=== PATIENT | female | born 1995 | race Caucasian/White ===

== ENCOUNTER 2016-12-22 09:48 | Emergency (ER) | payer BC, OTHER ==
[2016-12-22 11:14] VITALS: BP 122/70
--- NOTE | 2016-12-27 11:14 | UC ---
Respiratory Complaint HPI - HPI Summary HPI Summary: 3-4 days of worsening sore throat - History of Current Complaint Chief Complaint: UCGeneralIllness Stated Complaint: FLU SYMPTOMS Time Seen by Provider: 12/22/16 11:52 Hx Obtained From: Patient Hx Last Menstrual Period: IUD ?: No Onset/Duration: Sudden Onset, Lasting Days - 3-4, Still Present Severity Initially: Moderate Severity Currently: Moderate Pain Intensity: 8 Pain Scale Used: 0-10 Numeric Alleviating Factors: Nothing Associated Signs And Symptoms: Positive: Negative - Allergies/Home Medications Allergies/Adverse Reactions: Allergies Allergy/AdvReac Type Severity Reaction Status Date / Time Amoxicillin Allergy Severe Blisters Verified 12/22/16 11:05 Latex Allergy Intermediate Blisters Verified 12/22/16 11:05 Penicillins Allergy Intermediate Blisters Verified 12/22/16 11:05 yvonne cheese Allergy Hives Uncoded 12/22/16 11:05 tomatoes Allergy Hives Uncoded 12/22/16 11:05 Home Medications: Home Medications Naproxen [Naprosyn EC 375 MG TAB] 1 tab PO Q12HR PRN 12/22/16 [History Confirmed 12/22/16] Pseudoephedrine-Guaifenesin [Mucinex D 60-600 mg] 1 tab PO Q12HR PRN 12/22/16 [ History Confirmed 12/22/16] PMH/Surg Hx/FS Hx/Imm Hx Previously Healthy: No Endocrine History Of: Denies: Diabetes, Thyroid Disease, Hyperthyroidism, Hypothyroidism, Dyslipidemia Cardiovascular History Of: Denies: Cardiac Disorders, Hypertension, Pacemaker/ICD, Myocardial Infarction , Congestive Heart Failure, Atrial Fibrillation, Deep Vein Thrombosis, Bleeding Disorders Respiratory History Of: Reports: Asthma - Childhood Denies: COPD GI/ History Of: Denies: Gastroesophageal Reflux, Ulcer, Gastrointestinal Bleed, Gall Bladder Disease, Kidney Stones, Diverticulitis, Renal Disease, Urosepsis Neurological History Of: Denies: TIA, CVA, Dementia, Seizures, Migraine Psychological History Of: Denies: Anxiety, Depression, Bipolar Disorder, Schizophrenia, Post Traumatic Stress Disorder Cancer History Of: Denies: Lung Cancer, Colorectal Cancer, Breast Cancer, Prostate Cancer, Cervical Cancer Other History Of: Negative For: HIV, Hepatitis B, Hepatitis C, Anticoagulant Therapy - Surgical History Surgical History: None Surgery Procedure, Year, and Place: fractured back - Family History Known Family History: Positive: None, Hypertension - Social History Occupation: Employed Full-time Lives: With Family Alcohol Use: None Substance Use Type: None Smoking Status (MU): Never Smoked Tobacco Household Exposure Type: Cigarettes - Immunization History Most Recent Influenza Vaccination: never Most Recent Tetanus Shot: UTD Vaccination Up to Date: Yes Review of Systems Constitutional: Negative Skin: Negative Eyes: Negative ENT: Negative, Sore Throat Respiratory: Negative Cardiovascular: Negative Gastrointestinal: Negative Genitourinary: Negative Motor: Negative Neurovascular: Negative Musculoskeletal: Negative Neurological: Negative Psychological: Negative All Other Systems Reviewed And Are Negative: Yes Physical Exam Triage Information Reviewed: Yes Appearance: Well-Appearing, No Pain Distress, Well-Nourished Vital Signs: Initial Vital Signs Temp 99.2 F 12/22/16 11:01 Pulse 74 12/22/16 11:01 Resp 18 12/22/16 11:01 BP 122/70 12/22/16 11:01 Pulse Ox 100 12/22/16 11:01 Vital Signs Reviewed: Yes Eye Exam: Normal Eyes: Positive: Conjunctiva Clear ENT Exam: Normal ENT: Positive: Normal ENT inspection, Hearing grossly normal, Pharynx normal, Nasal congestion, Nasal drainage. Negative: Trismus, Muffled/hoarse voice Dental Exam: Normal Neck exam: Normal Neck: Positive: Supple, Nontender, No Lymphadenopathy Respiratory Exam: Normal Respiratory: Positive: Chest non-tender, Lungs clear, Normal breath sounds, No respiratory distress, No accessory muscle use Cardiovascular Exam: Normal Cardiovascular: Positive: RRR, No Murmur, Pulses Normal, Brisk Capillary Refill Musculoskeletal Exam: Normal Musculoskeletal: Positive: Strength Intact, ROM Intact, No Edema Neurological Exam: Normal Neurological: Positive: Alert, Muscle Tone Normal Psychological Exam: Normal Skin Exam: Normal UC Diagnostic Evaluation - Laboratory O2 Sat by Pulse Oximetry: 100 Diagnostic Studies Comment: RST (-), Influenza a/b (-) Respiratory Course/Dx - Course Course Of Treatment: rest, increase fluids, otc pain and symptom relief follow with pcp - Differential Dx/Diagnosis Differential Diagnosis/HQI/PQRI: Asthma, Bronchitis, Influenza, Laryngitis, Lower Resp Infection Provider Diagnoses: URI, Viral syndrome Discharge - Discharge Plan Condition: Stable Disposition: HOME Patient Education Materials: Upper Respiratory Infection (ED), Viral Syndrome ( ED) Referrals: [facility] [place] [facility]FERR[facility] [Outside] - 4 Days No Primary Care Phys,NOPCP [Primary Care Provider] -
== END 2016-12-22 12:30 | disposition home or self-care (01) ==
LOC: UCEAST 09:48
DX: J06.9 Acute upper respiratory infection, unspecified (principal); B34.9 Viral infection, unspecified; Z88.0 Allergy status to penicillin; Z77.22 Contact with and (suspected) exposure to environmental tobacco smoke (acute) (chronic)
CPT/HCPCS: 87502; 87651; 99211; G0463

== ENCOUNTER 2017-03-02 16:40 | Emergency (ER) | payer BC, OTHER ==
[2017-03-02 16:45] VITALS: BP 113/74
--- NOTE | 2017-03-02 17:20 | UC ---
Clemente Bunch Alok, scribed for Wilfredo Broderick MD on 03/02/17 at 1717 . Skin Complaint HPI - HPI Summary HPI Summary: 21F presents to [facility] with a rash with pruritus and erythema on her arms, chest, and shoulders. Pt states that yesterday she noticed the rash which began on her left hand and by this morning spread to her arms, chest, and shoulders. Pt states she was working on old floor tiles yesterday. Pt also notes leg pruritus. Pt also notes a sore throat as well as fatigue yesterday and today. Pt denies SOB. - History of Current Complaint Chief Complaint: UCSkin Time Seen by Provider: 03/02/17 17:04 Stated Complaint: HIVES,CHEST DISCOMFORT Hx Obtained From: Patient Hx Last Menstrual Period: IUD ?: No Onset/Duration: Lasting Days, Still Present Timing: Constant Onset Severity: Moderate Current Severity: Moderate Location: Generalized Character: Pruritus, Redness Aggravating: Nothing Alleviating: Nothing Associated Signs & Symptoms: Positive: Rash - Allergy/Home Medications Allergies/Adverse Reactions: Allergies Allergy/AdvReac Type Severity Reaction Status Date / Time Amoxicillin Allergy Severe Blisters Verified 03/02/17 16:45 Latex Allergy Intermediate Blisters Verified 03/02/17 16:45 Penicillins Allergy Intermediate Blisters Verified 03/02/17 16:45 yvonne cheese Allergy Hives Uncoded 01/23/17 08:52 tomatoes Allergy Hives Uncoded 01/23/17 08:52 Review of Systems Constitutional: Negative Skin: Rash ENT: Sore Throat Respiratory: Negative All Other Systems Reviewed And Are Negative: Yes PMH/Surg Hx/FS Hx/Imm Hx Other History Of: Negative For: HIV, Hepatitis B, Hepatitis C, Anticoagulant Therapy - Surgical History Surgical History: None Surgery Procedure, Year, and Place: fractured back-NO SURGERY - Family History Known Family History: Positive: Hypertension - Social History Occupation: Employed Full-time Alcohol Use: None Substance Use Type: None Smoking Status (MU): Never Smoked Tobacco Household Exposure Type: Cigarettes - Immunization History Most Recent Influenza Vaccination: never Most Recent Tetanus Shot: UTD Vaccination Up to Date: Yes Physical Exam Triage Information Reviewed: Yes Appearance: Well-Appearing, No Pain Distress Vital Signs: Initial Vital Signs Temp 99.6 F 03/02/17 16:44 Pulse 64 03/02/17 16:44 Resp 16 03/02/17 16:44 BP 113/74 03/02/17 16:44 Pulse Ox 97 03/02/17 16:44 Vital Signs Reviewed: Yes Eyes: Positive: Other: - EOMI, BONITA ENT Exam: Normal ENT: Positive: Pharynx normal Neck: Positive: Supple, Nontender Respiratory: Positive: Lungs clear, Normal breath sounds Cardiovascular: Positive: RRR Abdomen Description: Positive: Nontender, Soft Bowel Sounds: Positive: Present Musculoskeletal Exam: Normal Musculoskeletal: Positive: Strength Intact, ROM Intact Neurological Exam: Normal Neurological: Positive: Other: - A&O x3. Sensory/Motor intact Psychological: Positive: Other: - affect/mood appropriate Skin: Positive: Other - Rash 2-3 mm punctate raised erythematous areas multiple of them on wrists, forearms, anterior chest, and upper shoulders. None on abd, waist line, or legs. Course/Dx - Course Course Of Treatment: Pt medications reviewed this visit. PATIENT WAS CLEANING YESTERDAY MORNING AND THIS MAY BE THE CAUSE OF THE RASH; CONTACT DERMATITIS. THERE WAS NO RASH ON THE WAISTLINE OR BETWEEN THE FINGER WEBBING SO, IT DOES NOT APPEAR TO BE SCABIES. LUNGS CTA/OROPHARYNX OPEN. RX PREDNISONE 40MG PO QD. PATIENT WILL F/U WITH PMD OR, IF WORSE,GO TO THE ED. - Diagnoses Provider Diagnoses: RASH Discharge - Discharge Plan Condition: Stable Disposition: HOME Prescriptions: predniSONE TAB* [Deltasone TAB*] 40 mg PO DAILY #10 tab Patient Education Materials: Acute Rash (ED) Referrals: No Primary Care Phys,NOPCP [Primary Care Provider] - [facility] [place] [facility] RE[facility]ERR[facility] [Outside] Additional Instructions: FOLLOW UP WITH YOUR DOCTOR. TAKE THE PREDNISONE DIRECTED. GO TO THE EMERGENCY DEPARTMENT FOR ANY WORSENING OF YOUR CONDITION; FEVER, YOU FEEL ILL, SHORTNESS OF BREATH OR QUESTIONS OR CONCERNS. The documentation as recorded by the Clemente swanson Alok accurately reflects the service I personally performed and the decisions made by me, Wilfredo Broderick MD.
== END 2017-03-02 17:28 | disposition home or self-care (01) ==
LOC: UCEAST 16:40
DX: R21 Rash and other nonspecific skin eruption (principal); J02.9 Acute pharyngitis, unspecified; R53.83 Other fatigue; Z88.0 Allergy status to penicillin; Z88.1 Allergy status to other antibiotic agents; Z91.040 Latex allergy status; Z77.22 Contact with and (suspected) exposure to environmental tobacco smoke (acute) (chronic)
CPT/HCPCS: 99211; G0463

== ENCOUNTER 2017-03-12 15:27 | Emergency (ER) | payer BC, OTHER ==
[2017-03-12] MEDS ORDERED: NS 0.9% 1000 ML* 1,000 ML IV ONE (16:11)
[2017-03-12 16:29] LABS: Hematocrit 40 % (35-47); Hemoglobin 13.3 g/dl (12.0-16.0); Mean Corpuscular HGB Conc 34 g/dl (31-36); Mean Corpuscular Hemoglobin 31 pg (27-31); Mean Corpuscular Volume 92 fL (80-97); Mean Platelet Volume 9 um3 (7.4-10.4); Red Blood Count 4.32 10^6/ul (4.0-5.4); Red Cell Distribution Width 13 % (10.5-15); White Blood Count 12.9 10^3/ul (3.5-10.8)
[2017-03-12] MEDS ORDERED: Morphine INJ* 4 MG/ML 1 ML SYRINGE IV ONE ×2 (16:30→18:55)
[2017-03-12] MEDS ORDERED: Ondansetron INJ* 2 MG/ML VIAL IV ONE (16:30)
[2017-03-12 16:40] LABS: Albumin 4.5 g/dL (3.2-5.2); Calcium 9.4 mg/dL (8.6-10.3); EGFR African American 97.9 (>60); EGFR Non-African American 76.1 (>60); Globulin 2.9 g/dL (2-4); Magnesium 1.9 mg/dL (1.9-2.7); Potassium 3.9 mmol/L (3.5-5.0); Total Bilirubin 0.9 mg/dL (0.2-1.0); Total Protein 7.4 g/dL (6.4-8.9)
[2017-03-12] MEDS ORDERED: NS 0.9% 1000 ML* 1,000 ML IV SCH (16:45)
--- NOTE | 2017-03-12 16:58 | ED ---
Sade Bunch SooYoung, scribed for Alysa Gagnon MD on 03/12/17 at 1616 . Syncope/Near Syncope - HPI Summary HPI Summary: A 21 y/o F presents to ED with mom thorough amb triage. 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 Pt was walking when she had her syncopal episodes. Associated sx include R-sided abd pain onset last night after dinner, nausea, photophobia, decreased PO intake, fever of 101 F, vomiting. Pt reports mid right side abd pain. Denies vaginal discharge, itching, odor, or . She states "I feel like I'm dying." Pt states feels weak and dehydrated. Pt was recently dx with a UTI, pt is taking Cipro. She's been given Cipro by both [facility] and [facility]. (Bottle has 2 tabs missing, filled 03/09) Pt is also taking Prednisone after breaking into hives from touching concrete 1 week ago. She is unsure of the last time she took the Prednisone (bottle has 2 tabs missing, filled 03/03) . She is also taking Citrizine but not consistently. Pt reports has a headache and requests room lights off. Non-smoking, no ETOH, no drugs. Past SHx: shoulder surgery. Patient's medication reviewed this visit. 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, Lasting Days - abd pain last night, Still Present Timing: Constant Activity At Onset: At Rest - walking Associated Head Trauma: No Associated Signs And Symptoms: Pain - abd, Vomiting, Other - pos: nausea, photophobia, decreased PO intake, fever of 101 F - Allergies/Home Medications Allergies/Adverse Reactions: Allergies Allergy/AdvReac Type Severity Reaction Status Date / Time Amoxicillin Allergy Severe Blisters Verified 03/02/17 16:45 Latex Allergy Intermediate Blisters Verified 03/02/17 16:45 Penicillins Allergy Intermediate Blisters Verified 03/02/17 16:45 yvonne cheese Allergy Hives Uncoded 01/23/17 08:52 tomatoes Allergy Hives Uncoded 01/23/17 08:52 PMH/Surg Hx/FS Hx/Imm Hx Previously Healthy: No Endocrine/Hematology History: Denies: Hx Anticoagulant Therapy, Hx Diabetes, Hx Systemic Lupus Erythematosus, Hx Thyroid Disease Cardiovascular History: Denies: Hx Congestive Heart Failure, Hx Deep Vein Thrombosis, Hx Hypertension , Hx Myocardial Infarction, Hx Pacemaker/ICD, Hx Peripheral Vascular Disease Respiratory History: Reports: Hx Asthma - Childhood Denies: Hx Chronic Obstructive Pulmonary Disease (COPD), Hx Lung Cancer GI History: Denies: Hx Gall Bladder Disease, Hx Gastrointestinal Bleed, Hx Ulcer, Hx Urosepsis History: Denies: Hx Dialysis, Hx Kidney Stones, Hx Renal Disease Musculoskeletal History: Reports: Hx Back Problems, Other Musculoskeletal History - RIGHT SHOULDER INJURY Denies: Hx Arthritis, Hx Rheumatoid Arthritis, Hx Osteoporosis Sensory History: Reports: Hx Contacts or Glasses - GLASSES Denies: Hx Cataracts, Hx Glaucoma, Hx Hearing Aid Opthamlomology History: Reports: Hx Contacts or Glasses - GLASSES Denies: Hx Cataracts, Hx Glaucoma Neurological History: Denies: Hx Dementia, Hx Headaches, Hx Migraine, Hx Seizures, Hx Transient Ischemic Attacks (TIA) Psychiatric History: Denies: Hx Anxiety, Hx Depression, Hx Panic Disorder, Hx Schizophrenia, Hx Bipolar Disorder, Hx Substance Abuse - Cancer History Cancer Type, Location and Year: fractured back; "my stomach doesn't digest correctly" Hx Chemotherapy: No - Surgical History Surgery Procedure, Year, and Place: fractured back-NO SURGERY Hx Anesthesia Reactions: No - NO SURGERY - Immunization History Date of Tetanus Vaccine: Unk Date of Influenza Vaccine: None Infectious Disease History: No Infectious Disease History: Denies: Hx Hepatitis, Traveled Outside the [place] in Last 30 Days - Family History Known Family History: Positive: Hypertension - Social History Occupation: Employed Part-time Lives: Alone Alcohol Use: None Hx Substance Use: No Substance Use Type: Reports: None Hx Tobacco Use: No Smoking Status (MU): Never Smoked Tobacco Review of Systems Positive: Fever - 101 F reported - vomited 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 Negative: discharge - neg: vaginal discharge Skin: Negative Positive: Syncope - without trauma Psychological: Normal All Other Systems Reviewed And Are Negative: Yes Physical Exam Triage Information Reviewed: Yes Vital Signs On Initial Exam: Initial Vitals Temp Pulse Resp BP Pulse Ox 97.5 F 70 17 130/85 98 03/12/17 15:32 03/12/17 15:32 03/12/17 15:32 03/12/17 15:32 03/12/17 15:32 Vital Signs Reviewed: Yes Appearance: Positive: Well-Nourished. Negative: No Pain Distress - Pt eyes closed, requesting lights off Skin: Positive: Warm, Skin Color Reflects Adequate Perfusion, Dry Head/Face: Positive: Normal Head/Face Inspection ENT: Positive: TMs normal, Other - lips dry, mm pasty Neck: Positive: Supple, Nontender, No Lymphadenopathy Respiratory/Lung Sounds: Positive: Clear to Auscultation, Breath Sounds Present , Decreased Breath Sounds. Negative: Rhonchi, Wheezes Cardiovascular: Positive: Normal, RRR. Negative: Murmur Abdomen Description: Positive: No Organomegaly, Soft. Negative: Nontender - right mid abdTTP, No masses, no distension + BS No guarding no suprapubic pain Bowel Sounds: Positive: Present Musculoskeletal: Positive: Normal, Strength/ROM Intact Neurological: Positive: Normal, Sensory/Motor Intact, Alert, Oriented to Person Place, Time - Melyssa Coma Scale Coma Scale Total: 15 Diagnostics - Vital Signs Vital Signs Temp Pulse Resp BP Pulse Ox 03/12/17 16:01 63 120/83 100 03/12/17 15:57 97.7 F 64 16 120/83 99 03/12/17 15:32 97.5 F 70 17 130/85 98 - Laboratory Lab Results: Lab Results 03/12/17 03/12/17 Range/Units 15:55 15:55 WBC 12.9 H (3.5-10.8) 10^3/ul RBC 4.32 (4.0-5.4) 10^6/ul Hgb 13.3 (12.0-16.0) g/dl Hct 40 (35-47) % MCV 92 (80-97) fL MCH 31 (27-31) pg MCHC 34 (31-36) g/dl RDW 13 (10.5-15) % Plt Count 278 (150-450) 10^3/ul MPV 9 (7.4-10.4) um3 Neut % (Auto) 79.5 (38-83) % Lymph % (Auto) 15.1 L (25-47) % Duval % (Auto) 5.2 (1-9) % Eos % (Auto) 0 (0-6) % Baso % (Auto) 0.2 (0-2) % Absolute Neuts (auto) 10.3 H (1.5-7.7) 10^3/ul Absolute Lymphs (auto) 2.0 (1.0-4.8) 10^3/ul Absolute Monos (auto) 0.7 (0-0.8) 10^3/ul Absolute Eos (auto) 0 (0-0.6) 10^3/ul Absolute Basos (auto) 0 (0-0.2) 10^3/ul Absolute Nucleated RBC 0.01 10^3/ul Nucleated RBC % 0 Sodium 136 (133-145) mmol/L Potassium 3.9 (3.5-5.0) mmol/L Chloride 105 (101-111) mmol/L Carbon Dioxide 24 (22-32) mmol/L Anion Gap 7 (2-11) mmol/L BUN 13 (6-24) mg/dL Creatinine 0.93 (0.51-0.95) mg/dL Est GFR ( Amer) 97.9 (>60) Est GFR (Non-Af Amer) 76.1 (>60) BUN/Creatinine Ratio 14.0 (8-20) Glucose 96 (70-100) mg/dL Calcium 9.4 (8.6-10.3) mg/dL Magnesium 1.9 (1.9-2.7) mg/dL Total Bilirubin 0.90 (0.2-1.0) mg/dL AST 13 (13-39) U/L ALT 9 (7-52) U/L Alkaline Phosphatase 49 (34-104) U/L Total Protein 7.4 (6.4-8.9) g/dL Albumin 4.5 (3.2-5.2) g/dL Globulin 2.9 (2-4) g/dL Albumin/Globulin Ratio 1.6 (1-3) Beta HCG, Quant 0.61 mIU/mL Result Diagrams: 03/12/17 15:55 03/12/17 15:55 Lab Statement: Any lab studies that have been ordered have been reviewed, and results considered in the medical decision making process. - CT A/P CT CT Interpretation: Positive (See Comments) - IMPRESSION: 1. SLIGHTLY LIMITED STUDY, NO EVIDENCE FOR APPENDICITIS. RECOMMEND CLINICAL FOLLOW-UP. 2. MODERATE DISTENTION OF THE PROXIMAL TRANSVERSE DUODENUM SUGGESTING THE POSSIBILITY OF SUPERIOR MESENTERIC ARTERY SYNDROME. CT Interpretation Completed By: Radiologist - EKG 1 EKG Rhythm: Sinus Rhythm - 63 bpm EKG Interpretation: No acute changes. Read at 1612. Re-Evaluation - Re-Evaluation 1 Re-Evaluation Time: 17:19 Change: Improved Comment: Checking on pt's contrast intake. Pt has had 1 bottle. [place] has improved. Pt scrolling on her cell phone. nausea improved, not resolved. labs reviewed. awaiting Ct and urine. Pt aware 2 Re-Evaluation Time: 20:06 Comment: - Discussing CT results with pt and mother. Recommendation to F/U with GI in [place] - call tomorrow for an appointment. - Still awaiting urine. - will give Rx zofran. pt requesting work note for tomorrow 3 Re-Evaluation Time: 20:37 Comment: - Pt ambulated without difficulty, lightheadedness. - Discussing UA results with pt and mother. recommend continue with cipro. culture pending Course/Dx Assessment/Plan: Pt presents with right sided abd pain, nausea, vomiting- pt states is on cipro for UTI but hx is inconsistent with pills remaining in bottles. Pt report 2 syncopal episodes while standing - no injury. Pt reports feeling dehydrated and weak. Will give IVF, antiemetic, analgesia. Check labs. CT abd/pelvis. EKG reviewed - Diagnoses Provider Diagnoses: UTI (urinary tract infection), Vomiting - Physician Notifications Discussed Care of Patient With: Scot Harp - surgery Time Discussed With Above Provider: 19:59 - No acute surgical interventioin required - normal laboratory results - okay to f/u with GI Instructed by Provider To: Other - discussed CT results, recommends f/u with GI Discharge - Discharge Plan Condition: Stable Disposition: HOME Prescriptions: Ondansetron ODT TAB* [Zofran 4 MG Odt TAB*] 4 mg PO Q6H PRN #10 tab.odt PRN Reason: Nausea Patient Education Materials: Ondansetron (By mouth) Forms: *Work Release Referrals: [facility] [Outside] No Primary Care Phys,NOPCP [Primary Care Provider] - Additional Instructions: As discussed, follow up with your GI doctor in [place] - call tomorrow to schedule and appointment Stay well hydrated - frequent sips of non-alcoholic, non-caffinated beverages Alternate ibuprofen (advil, motrin) and tylenol every 3 hours for pain Take with food. do NOT take for more than 4-5 days It is recommended you continue taking cipro - medications previously prescribed for urinary tract infection Okay to take medication as prescribed for nausea . The documentation as recorded by the Sade swanson SooYoung accurately reflects the service I personally performed and the decisions made by me, Alysa Gagnon MD.
[2017-03-12] MEDS ORDERED: Metoclopramide IV* 5 MG/ML 2 ML VIAL IV ONE (18:55)
[2017-03-12] MEDS ORDERED: Iohexol 300* (CONTRAST) 10 ML SDV IV ONE (19:04)
[2017-03-12 19:16] VITALS: BP 118/69
--- NOTE | 2017-03-12 19:49 | RAD ---
INDICATION: Right mid abdominal pain and fever. COMPARISON: Comparison is made with a prior CT of the abdomen and pelvis from March 20, 2016. TECHNIQUE: A CT scan of the abdomen and pelvis was performed with intravenous and oral contrast following intravenous injection of 68 ml of Omnipaque 300 nonionic contrast. Contiguous axial sections were obtained from the lung bases through the symphysis pubis. Images were reconstructed in the coronal and sagittal planes. FINDINGS: The lung bases are clear. No pleural effusion is present. The liver and spleen are within normal limits in size without significant focal abnormality. No calcified gallstones are seen. The pancreas appears to be within normal limits in size. The kidneys and adrenal glands are normal in size. No hydronephrosis is seen. No significant focal renal abnormality is seen. The aorta is normal in caliber and demonstrates homogeneous contrast opacification. No significant enlarged retroperitoneal lymph nodes are seen. The stomach is nondistended. There is moderate distention of the proximal transverse duodenum up to the level of the superior mesenteric artery suggesting the possibility of superior mesenteric artery syndrome in this thin patient. The superior mesenteric artery makes a shallow angle with the abdominal aorta. The small bowel and colon are otherwise nondistended. The appendix is partially visualized and the portions visualized appear to be within normal limits. No inflammatory changes are seen in the right lower quadrant. There is no evidence for diverticulitis or colitis. The uterus is normal in size and anteverted. There is an IUD present. There is a trace amount of free intraperitoneal fluid in the cul-de-sac. No free intraperitoneal air is seen. No significant focal osseous abnormality is seen. IMPRESSION: 1. SLIGHTLY LIMITED STUDY, NO EVIDENCE FOR APPENDICITIS. RECOMMEND CLINICAL FOLLOW-UP. 2. MODERATE DISTENTION OF THE PROXIMAL TRANSVERSE DUODENUM SUGGESTING THE POSSIBILITY OF SUPERIOR MESENTERIC ARTERY SYNDROME.
[2017-03-12] MEDS ORDERED: Ondansetron ODT TAB* 4 MG PO PRN (20:25)
[2017-03-12 20:35] LABS: Urine Bacteria 1+ (Absent); Urine Bilirubin Negative (Negative); Urine Glucose Negative (Negative); Urine Nitrite Negative (Negative)
== END 2017-03-12 20:56 | disposition home or self-care (01) ==
LOC: ED 15:27
DX: N39.0 Urinary tract infection, site not specified (principal); R55 Syncope and collapse; R11.2 Nausea with vomiting, unspecified; R10.9 Unspecified abdominal pain; R50.9 Fever, unspecified; Z32.02 Encounter for pregnancy test, result negative; J45.909 Unspecified asthma, uncomplicated; Z88.0 Allergy status to penicillin; Z88.1 Allergy status to other antibiotic agents; Z91.040 Latex allergy status
CPT/HCPCS: 36415; 74177; 80053; 81003; 81015; 83690; 83735; 84702; 85025; 87086; 93005; 96361; 96374; 96375; 96376; 99283; A9270-GY; J2270; J2405; Q9967

== ENCOUNTER 2017-08-08 08:00 | Emergency (ER) | payer BC, OTHER ==
[2017-08-08 08:10] VITALS: BP 105/64
[2017-08-08] MEDS ORDERED: Albuterol/Ipratropium NEB.SOL* Albuterol 2.5 MG/Ipratropium 0.5 MG 3 ML INH ONE (08:59)
--- NOTE | 2017-08-08 09:02 | UC ---
Respiratory Complaint HPI - HPI Summary HPI Summary: 22 yo female c/o progressive worse cough, nasal congestion / sinus stuffiness x 2 weeks. Last few days has been c/o distal lat R insp chest discomfort with deep breath or cough. No sob perse. No palpitations. No recent travel. Nonsmoker. No fever / chills. Pt is concerned d/t two family members in household have been dx'd pneumonia. Nonsmoker. No rash. No GI sx. - History of Current Complaint Chief Complaint: UCRespiratory Stated Complaint: CONGESTION Time Seen by Provider: 08/08/17 08:50 Hx Obtained From: Patient Hx Last Menstrual Period: iud ?: No - Allergies/Home Medications Allergies/Adverse Reactions: Allergies Allergy/AdvReac Type Severity Reaction Status Date / Time Amoxicillin Allergy Severe Blisters Verified 08/08/17 08:10 Latex Allergy Intermediate Blisters Verified 08/08/17 08:10 Penicillins Allergy Intermediate Blisters Verified 08/08/17 08:10 [place] Extract Allergy Hives Verified 08/08/17 08:10 Fish-derived Products Allergy Hives Verified 08/08/17 08:10 Onion Allergy Hives Verified 08/08/17 08:10 yvonne cheese Allergy Hives Uncoded 08/08/17 08:10 tomatoes Allergy Hives Uncoded 08/08/17 08:10 Home Medications: Home Medications Ibuprofen [Advil] 600 mg PO 08/08/17 [History] Frvszcgeihagg-Khqmnsnmeqv-Ek [Theraflu Cold & Cough] 1 tom PO 08/08/17 [History] Pseudoephedrine-Guaifenesin [Mucinex D 60-600 mg] 1 tab PO 08/08/17 [History] PMH/Surg Hx/FS Hx/Imm Hx Previously Healthy: Yes Other History Of: Negative For: HIV, Hepatitis B, Hepatitis C, Anticoagulant Therapy - Surgical History Surgical History: Yes Surgery Procedure, Year, and Place: FX BACK-NO SURGERY;. RIGHT SHOULDER REPAIR 01/2017;. MIRENA IUD 3T - Family History Known Family History: Positive: None, Hypertension - Social History Alcohol Use: None Substance Use Type: None Smoking Status (MU): Never Smoked Tobacco Household Exposure Type: Cigarettes - Immunization History Most Recent Influenza Vaccination: never Most Recent Tetanus Shot: UTD Vaccination Up to Date: Yes Review of Systems Constitutional: Fatigue Skin: Negative Eyes: Negative ENT: Nasal Discharge, Sinus Congestion Respiratory: Cough Cardiovascular: Chest Pain Gastrointestinal: Negative Genitourinary: Negative Motor: Negative Neurovascular: Negative Musculoskeletal: Negative Neurological: Negative Psychological: Negative Is Patient Immunocompromised?: No All Other Systems Reviewed And Are Negative: Yes Physical Exam Triage Information Reviewed: Yes Appearance: Well-Nourished - looks tired. NAD. Vital Signs: Initial Vital Signs Temp 98.9 F 08/08/17 08:07 Pulse 89 08/08/17 08:07 Resp 18 08/08/17 08:07 BP 105/64 08/08/17 08:07 Pulse Ox 99 08/08/17 08:07 Vital Signs Reviewed: Yes Eye Exam: Normal ENT: Positive: Pharyngeal erythema, TM dull Neck exam: Normal Neck: Positive: Supple, Nontender, Enlarged Nodes @ - R submand adenopathy Respiratory Exam: Other - c/o tender R lat chest wall, worse with inspiration, focal. Respiratory: Positive: Rhonchi - + rhonchorus cough, Wheezing - mild exp wheeze bilat Cardiovascular Exam: Normal Cardiovascular: Positive: RRR, No Murmur, Pulses Normal Abdominal Exam: Normal Abdomen Description: Positive: Nontender Musculoskeletal Exam: Normal Neurological Exam: Normal Psychological Exam: Normal Skin Exam: Normal - no rash visible or reported UC Diagnostic Evaluation - Laboratory O2 Sat by Pulse Oximetry: 99 Respiratory Course/Dx - Course Course Of Treatment: Duoneb x 1. CXR - see [facility] report. Reviewed report with pt. Additional chostochondritis vs pleuritis. Considered pe, but doubt, sx more c/w with the above. D/w pt the importance of seeking medical attention for worse or new symptoms. D/w pt s/sx and coa. Questions as posed answered to the best of my ability. Reviewed need for f/u. - Differential Dx/Diagnosis Provider Diagnoses: Acute bronchitis with wheezing Discharge - Discharge Plan Condition: Stable Disposition: HOME Prescriptions: Albuterol HFA INHALER* [Ventolin HFA Inhaler*] 1 - 2 puff INH Q4H PRN #1 mdi PRN Reason: Wheezing Azithromyxin TOM (NF) [Z-Tom (Zithromax) 250 mg tabs #6] 2 tab PO .TODAY, THEN 1 DAILY #6 tab Patient Education Materials: Ibuprofen (By mouth), Pleurisy (ED), Acute Bronchitis (ED), Wheezing (ED) Referrals: [facility] [Outside] No Primary Care Phys,NOPCP [Primary Care Provider] - Additional Instructions: Follow up primary care physician, if possible in the next week. Seek medical attention sooner for worse or new problems in the meantime.
--- NOTE | 2017-08-08 09:33 | RAD ---
HISTORY: Cough, right chest discomfort COMPARISONS: None VIEWS: 4: Frontal dual-energy and lateral views of the chest. FINDINGS: CARDIOMEDIASTINAL SILHOUETTE: The cardiomediastinal silhouette is normal. YANG: The yang are normal. PLEURA: The costophrenic angles are sharp. No pleural abnormalities are noted. LUNG PARENCHYMA: The lungs are clear. ABDOMEN: The upper abdomen is clear. There is no subphrenic gas. BONES AND SOFT TISSUES: No bone or soft tissue abnormalities are noted. OTHER: None. IMPRESSION: NO ACTIVE CARDIOPULMONARY DISEASE.
== END 2017-08-08 10:08 | disposition home or self-care (01) ==
LOC: UCEAST 08:00
DX: J20.9 Acute bronchitis, unspecified (principal); Z88.0 Allergy status to penicillin; Z88.1 Allergy status to other antibiotic agents; Z91.040 Latex allergy status; Z77.22 Contact with and (suspected) exposure to environmental tobacco smoke (acute) (chronic)
CPT/HCPCS: 71020; 99212; A9270-GY; G0463

== ENCOUNTER 2017-09-04 07:55 | Day surgery (SDC) | payer BC, OTHER ==
--- NOTE | 2017-09-01 23:11 | HP ---
AMENDED REPORT NOW INCLUDES COSIGNER DESIGNATION - ESIGNED BEFORE ADJUSTMENT PREOPERATIVE HISTORY AND PHYSICAL: DATE OF ADMISSION: 09/04/17 PROVIDER: Chadd Solomon MD * (DICTATED BY JUNE EDWARDS) CHIEF COMPLAINT: Right ankle instability. 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 She now has persistent instability. She also feels as though it is weak and she has difficulty using ladders and walking on ground in her job. She has failed a course of physical therapy and bracing. She is interested in surgical intervention for correction of the problem at this point. PAST MEDICAL HISTORY: None. PAST SURGICAL HISTORY: Right shoulder arthroscopy with labral repair and tonsillectomy. She reports no complications with anesthesia with those procedures. CURRENT MEDICATIONS: None. ALLERGIES: AMOXICILLIN. SOCIAL HISTORY: The patient is not currently working. She lives alone. She denies tobacco use. She denies alcoholic beverage use. She does exercise regularly. REVIEW OF SYSTEMS: A 14-point review of systems was discussed with the patient and all systems were negative except as discussed in the HPI. PHYSICAL EXAMINATION GENERAL: She is a well-developed, well-nourished pleasant female, in no acute distress at rest. She is alert and oriented x3 with appropriate mood and affect. VITAL SIGNS: The patient is 5 feet 2 inches, 115 pounds, blood pressure 114/70 , pulse 56, respirations 20. HEENT: Normocephalic, atraumatic. Her hearing and vision are grossly intact. NECK: Trachea is midline. RESPIRATORY: Lungs are clear to auscultation bilaterally. No wheezes, rales, or rhonchi. CARDIOVASCULAR: Regular rate and rhythm. No murmurs, rubs, or gallops. Normal S1, S2. ABDOMEN: Soft, nondistended, nontender. Normal bowel sounds. EXTREMITIES: Exam of the right lower extremity, skin is intact without abrasions or open wounds. There is no edema, ecchymosis, or gross deformities. She has full hindfoot range of motion with 5/5 strength. She has tenderness at the distal aspect of the lateral malleolus. Sensation to light touch is intact. She has a normal vascular exam. IMPRESSION: Right ankle instability. PLAN: The patient is to undergo right ankle ligament repair by Dr. Solomon on . The risks, benefits, and postoperative course were discussed with the patient at length and she would like to proceed. A prescription for oxycodone was sent to her pharmacy for postoperative pain. All of the questions were answered to her full satisfaction. We will follow up the patient on the postoperative day. JUNE EDWARDS [id number]/[facility] #: [id number] GIANLUCA
[~2017-09-04 07:55] MED LIST: Famotidine IV* 10 MG/ML 2 ML (20 mg) IV ONE
[2017-09-04] MEDS ORDERED: Famotidine IV* 10 MG/ML 2 ML (20 mg) ONE (08:11)
[2017-09-04] MEDS ORDERED: ceFAZolin 2 GM PREMIX (*) 2 GM/50 ML BAG IVPB ONE (08:11)
[2017-09-04] MEDS ORDERED: Buffered Lidocaine 0.9% SYRIN* 5 ML/SYR SYRINGE ONE (08:11)
[2017-09-04] MEDS: Buffered Lidocaine 0.9% SYRIN* 5 ML/SYR SYRINGE INTRADERM ONE ×2 (08:30→08:32)
[2017-09-04] MEDS ORDERED: Midazolam* 1 MG/ML 2 ML VIAL (2 MG) ONE (09:40)
[2017-09-04] MEDS ORDERED: fentaNYL* 50 MCG/ML 2 ML VIAL (100 MCG VIAL) ONE ×2 (09:40→11:14)
[2017-09-04] MEDS ORDERED: Lidocaine 2% PF* 10 ML AMP ONE (10:37)
[2017-09-04] MEDS ORDERED: Bupivacaine 0.5% SDV PF* 30 ML VIAL ONE (10:53)
[2017-09-04] MEDS ORDERED: Ketorolac INJ* 30 MG/ML 1 ML VIAL ONE (10:54)
[2017-09-04] MEDS ORDERED: Lidocaine 2% PF * 5 ML VIAL ONE (10:54)
[2017-09-04] MEDS ORDERED: Dexamethasone IV* 4 MG/ML 1 ML (4 MG) ONE (10:54)
[2017-09-04] MEDS ORDERED: Propofol* 10 MG/ML 20 ML BTL IV PUSH ONE (10:54)
[2017-09-04] MEDS ORDERED: DiMENhydriNATE IV* 50 MG/ML VIAL ONE (10:54)
[2017-09-04] MEDS ORDERED: Ondansetron INJ* 2 MG/ML VIAL ONE (10:54)
[2017-09-04] MEDS ORDERED: Succinylcholine* 20 MG/ML 10 ML VIAL ONE (10:54)
[2017-09-04] MEDS ORDERED: Acetaminophen TAB* 325 MG PO PRN (11:18)
[2017-09-04] MEDS ORDERED: DiMENhydriNATE IV* 50 MG/ML VIAL IV PUSH PRN (11:18)
[2017-09-04] MEDS ORDERED: HYDROmorphone INJ* 1 MG/ML CARPUJECT SYRINGE IV PRN (11:18)
[2017-09-04] MEDS ORDERED: Acetaminophen TAB* 325 MG ONE (11:52)
[2017-09-04] MEDS ORDERED: oxyCODONE TAB* 5 MG TAB ONE (12:27)
[2017-09-04] MEDS: oxyCODONE TAB* 5 MG TAB PO PRN ×2 (12:28→12:29)
[2017-09-04 12:36] VITALS: BP 110/73
--- NOTE | 2017-09-05 07:30 | OP ---
DATE OF SURGERY: 09/04/17 - SDS DATE OF : 95 ATTENDING SURGEON: Chadd Solomon MD CUSTOMER RETENTION SPECIALIST: JUNE Hernandez ANESTHESIOLOGIST: Niru Johnson MD ANESTHESIA: General PREOPERATIVE DIAGNOSIS: Right ankle instability, chronic. POSTOPERATIVE DIAGNOSIS: Right ankle instability, chronic. PROCEDURE: Right ankle ligament repair. DESCRIPTION OF PROCEDURE: The patient was taken to the operating room where a longitudinal incision was made over the distal fibula with her in the left lateral decubitus position. We reflected the anterior capsule away from the distal anterior fibula and reflected the periosteum to the posterior aspect. Through-bone sutures were then created using a 0.062 C-wire and through-bone sutures #1 Vicryl imbricated the capsule firmly to the distal fibula using Anthony -Nelson sutures. We then brought the capsule back down over the through-bone sutures tying it to anterior capsule using 2-0 Vicryl sutures and then a compression dressing was applied after a closure of 2-0 Vicryl subcu and nikki through the skin. [id number]/[facility] #: [id number] MTDD
== END 2017-09-04 12:59 | disposition home or self-care (01) ==
LOC: OR 07:55
PROVIDERS: ATTEND Orthopaedic Surgery
DX: M25.371 Other instability, right ankle (principal); Z88.1 Allergy status to other antibiotic agents
CPT/HCPCS: 81025; 88304; 88311; A9270-GY; C1776; J0330; J0690; J1100; J1240; J1885; J2001; J2250; J2405; J2704; J3010

== ENCOUNTER 2017-09-10 20:10 | Emergency (ER) | payer OTHER ==
--- NOTE | 2017-09-11 00:35 | ED ---
Lower Extremity - HPI Summary HPI Summary: Pt here 7 days post op for Rt ankle surgery to repair ligament damage w/ Rt ankle pain. Surgery was performed by Dr. Chadd Solomon. No fracture per MRI report prior to surgery. She reports she's had pain and numbness along bottom of her foot since surgery but after accidentally striking the lateral aspect of her ankle against the bed frame 2 times, she's had worsening of pain with a sensation of something wet running down her leg. She also reports numbness has gotten worse since striking leg. Denies fever, chills, vomiting, fatigue. She reports she's tried her ibuprofen and percocet but nothing helps her pain so she stopped taking percocet because it just makes her sleepy. Also reports nausea since surgery. She is able to eat but states drinking makes her nauseous - has not vomited and has been drinking plenty of fluids. Has been using crutches and not weight bearing. Has an IUD in place. - History of Current Complaint Chief Complaint: EDExtremityLower Stated Complaint: RIGHT ANKLE INJURY Time Seen by Provider: 09/10/17 20:55 Hx Obtained From: Patient, Family/[employer] - boyfriend Hx Last Menstrual Period: iud Pain Intensity: 8 - Allergies/Home Medications Allergies/Adverse Reactions: Allergies Allergy/AdvReac Type Severity Reaction Status Date / Time Amoxicillin Allergy Severe Blisters Verified 09/04/17 08:24 [place] Extract Allergy Severe Hives Verified 09/04/17 08:24 Fish-derived Products Allergy Severe Hives Verified 09/04/17 08:24 Onion Allergy Severe Hives Verified 09/04/17 08:24 Latex Allergy Intermediate Blisters Verified 09/04/17 08:24 Penicillins Allergy Intermediate Blisters Verified 09/04/17 08:24 yvonne cheese Allergy Severe Hives Uncoded 09/04/17 08:24 tomatoes Allergy Severe Hives Uncoded 09/04/17 08:24 PMH/Surg Hx/FS Hx/Imm Hx Previously Healthy: Yes Endocrine/Hematology History: Denies: Hx Anticoagulant Therapy, Hx Diabetes, Hx Systemic Lupus Erythematosus, Hx Thyroid Disease Cardiovascular History: Denies: Hx Congestive Heart Failure, Hx Deep Vein Thrombosis, Hx Hypertension , Hx Myocardial Infarction, Hx Pacemaker/ICD, Hx Peripheral Vascular Disease Respiratory History: Reports: Hx Asthma - Childhood Denies: Hx Chronic Obstructive Pulmonary Disease (COPD), Hx Lung Cancer GI History: Denies: Hx Gall Bladder Disease, Hx Gastrointestinal Bleed, Hx Ulcer, Hx Urosepsis History: Denies: Hx Dialysis, Hx Kidney Stones, Hx Renal Disease Musculoskeletal History: Reports: Hx Back Problems, Other Musculoskeletal History - RIGHT SHOULDER INJURY; SPINAL FX- resolved Denies: Hx Arthritis, Hx Rheumatoid Arthritis, Hx Osteoporosis, Hx Scoliosis Sensory History: Reports: Hx Contacts or Glasses - reading Denies: Hx Cataracts, Hx Glaucoma, Hx Hearing Aid Opthamlomology History: Reports: Hx Contacts or Glasses - reading Denies: Hx Cataracts, Hx Glaucoma Neurological History: Denies: Hx Dementia, Hx Headaches, Hx Migraine, Hx Seizures, Hx Transient Ischemic Attacks (TIA), Other Neuro Impairments/Disorders Psychiatric History: Denies: Hx Anxiety, Hx Depression, Hx Panic Disorder, Hx Schizophrenia, Hx Bipolar Disorder, Hx Substance Abuse - Cancer History Cancer Type, Location and Year: fractured back; "my stomach doesn't digest correctly" Hx Chemotherapy: No - Surgical History Surgery Procedure, Year, and Place: FX BACK-NO SURGERY;. RIGHT SHOULDER REPAIR 01/2017;. MIRENA IUD 3T. Rt ankle ligament repair 09/04/2017 w/ Dr. Solomon Hx Anesthesia Reactions: No - Immunization History Date of Tetanus Vaccine: Unk Date of Influenza Vaccine: None Infectious Disease History: No Infectious Disease History: Denies: Hx Hepatitis, Traveled Outside the [place] in Last 30 Days - Family History Known Family History: Positive: Hypertension - Social History Lives: With Family Alcohol Use: None Hx Substance Use: No Substance Use Type: Reports: None Hx Tobacco Use: No Smoking Status (MU): Never Smoked Tobacco Review of Systems Constitutional: Negative Negative: Fever, Chills Eyes: Negative ENT: Negative Cardiovascular: Negative Respiratory: Negative Positive: Nausea. Negative: Abdominal Pain, Vomiting, Diarrhea Positive: no symptoms reported Positive: Arthralgia. Negative: Edema Positive: Numbness Psychological: Normal All Other Systems Reviewed And Are Negative: Yes Physical Exam Triage Information Reviewed: Yes Vital Signs On Initial Exam: Initial Vitals Temp Pulse Resp BP Pulse Ox 98.3 F 87 16 127/72 100 09/10/17 20:20 09/10/17 20:20 09/10/17 20:20 09/10/17 20:20 09/10/17 20:20 Vital Signs Reviewed: Yes Appearance: Positive: Well-Appearing, No Pain Distress, Well-Nourished Skin: Positive: Warm, Dry - areas of skin that are observable around "soft cast " are w/o erythema, edema or ecchymosis Head/Face: Positive: Normal Head/Face Inspection Eyes: Positive: Normal, EOMI, Conjunctiva Clear - anicteric sclera ENT: Positive: Normal ENT inspection, Hearing grossly normal, Pharynx normal - mucosa moist Respiratory/Lung Sounds: Positive: Breath Sounds Present Cardiovascular: Positive: Pulses are Symmetrical in both Upper and Lower Extremities - cap refill < 2 secs in toes on Rt Abdomen Description: Positive: Nontender, No Organomegaly, Soft Bowel Sounds: Positive: Present Musculoskeletal: Positive: Limited @ - Rt ankle in splint Neurological: Positive: Normal, Sensory/Motor Intact - pt has full sensation of gross touch in all toes on Rt, Alert, Oriented to Person Place, Time, CN Intact II-III Psychiatric: Positive: Normal - [place] Coma Scale Coma Scale Total: 15 Procedures - Procedure Summary Procedure Summary: Removed "soft cast" from Rt LE - dressing removed and incision observed - well approximated w/o erythema, warmth, drainage - she does have ecchymosis at the posterior area of the malleolus and along lateral heal - sensation intact - resplinted ankle w/ fresh xeroform placed with sterile gloves - covered with ample sterile gauze and webbing wrap applied then fiberglass splints (posterior leg and sugar tong) - N/V intact before and after application of splint - pt tolerated well Diagnostics - Vital Signs Vital Signs Temp Pulse Resp BP Pulse Ox 09/10/17 20:20 98.3 F 87 16 127/72 100 - Laboratory Lab Statement: Any lab studies that have been ordered have been reviewed, and results considered in the medical decision making process. Lower Extremity Course/Dx - Course Course Of Treatment: Pt presents w/ pain to Rt ankle after surgery (see HPI for details). XR taken and bones appear to be in alignment (wet read). Spoke w/ Dr. Pza who advised removing splint, observing surgical site for infection and replacing with fiberglass splint. This was done and site does not appear to be infected. Pt tolerated procedure well and reports although foot was still numb it was less with removal of splint. Pain improved after replacing new splint however pt still has pain in ankle. Offered ibuprofen, percocet or acetaminophen here - she will try acetaminophen as she hasn't taken a large dose of this yet. Encouraged ongoing rest, ice, elevation and no weight bearing. Reviewed danger s/sx of when to return to ED - pt and boyfriend agree w / plan. NOTE: pt has had nausea since surgery and is w/o vomiting/diarrhea - no ab pain, fever, chills and still eating and drinking well. Unsure if she's having nausea from pain? Tried acetaminophen tonight. She will continue this if it works. If not, will f/u w/ PCP or Dr. Solomon. - Diagnoses Provider Diagnoses: Ankle pain, right Discharge - Discharge Plan Condition: Stable Disposition: HOME Patient Education Materials: Splint Care (ED) Referrals: Chadd Solomon MD [Medical Doctor] - Additional Instructions: Keep splint clean, dry and in place Rest, ice and elevate leg Do not bear weight - use crutches as directed Follow-up with Dr. Solomon as directed *If you develop fever, chills, toe numbness, weakness, discoloration, return to ED
[2017-09-11] MEDS ORDERED: Acetaminophen TAB* 325 MG PO ONE (00:51)
[2017-09-11 01:16] VITALS: BP 123/73
--- NOTE | 2017-09-11 06:29 | RAD ---
INDICATION: Postsurgical injury. COMPARISON: Comparison is made with a prior study from May 04, 2017. TECHNIQUE: 3 views of the right ankle were obtained. FINDINGS: The bones are visualized through a plaster cast. There are several surgical nikki which project over the soft tissues laterally. The bones are in normal alignment. Joint spaces appear maintained. There is lucency in the medial aspect of the talus bone along the articular surface. No acute fracture is appreciated. IMPRESSION: THERE IS LUCENCY IN THE MEDIAL ASPECT OF THE TALUS BONE. RECOMMEND FOLLOW-UP STUDIES.
--- NOTE | 2017-09-11 06:32 | RAD ---
INDICATION: Postsurgical change. TECHNIQUE: 3 views of the right foot were obtained. FINDINGS: The bones are in a fiberglass cast limiting the study. The bones are normal alignment. There is an oblique radiolucent line extending through the base of the second metatarsal seen on one view. This may represent artifact although a fracture cannot be excluded. No other focal osseous abnormalities are seen. Several surgical nikki are noted laterally. IMPRESSION: 1. POSTSURGICAL CHANGES. 2. THERE IS AN OBLIQUE LUCENT LINE EXTENDING THROUGH THE BASE OF THE SECOND METATARSAL POSSIBLY ARTIFACTUAL SECONDARY TO AN OVERLYING CAST ALTHOUGH A FRACTURE CANNOT BE EXCLUDED.
== END 2017-09-11 01:15 | disposition home or self-care (01) ==
LOC: ED 20:10
DX: G89.18 Other acute postprocedural pain (principal); M25.571 Pain in right ankle and joints of right foot; Z97.5 Presence of (intrauterine) contraceptive device
CPT/HCPCS: 29515; 99282; A9270-GY

== ENCOUNTER 2018-03-26 15:06 | Emergency (ER) | payer BC, OTHER ==
--- NOTE | 2018-03-26 15:13 | UC ---
Back Pain HPI - HPI Summary HPI Summary: 22 yo female presents with low back pain and numbness down b/l legs. 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 She has a history of back pain and a lumbar vertebral fracture many years ago - but did not require treatment. Currently complains of additional decreased sensation on the outside of her b/l thighs. Has not taken anything for pain. She is ambulatory without assistance, but does have a shuffling gait. Denies saddle anesthesia, loss of bowel/bladder control. - History of Current Complaint Chief Complaint: UCBackPain Stated Complaint: BACK INJURY Hx Obtained From: Patient Hx Last Menstrual Period: iud Onset/Duration: Sudden Onset Timing: Constant Severity Initially: Severe Severity Currently: Severe Pain Intensity: 9 Pain Scale Used: 0-10 Numeric Character: Aching Aggravating Factor(s): Movement, Lifting, Bending, Walking Alleviating Factor(s): Rest, Position - Allergies/Home Medications Allergies/Adverse Reactions: Allergies Allergy/AdvReac Type Severity Reaction Status Date / Time amoxicillin Allergy Blisters Verified 03/26/18 15:17 cucumber Allergy Hives Verified 03/26/18 15:17 Fish Containing Products Allergy Hives Verified 03/26/18 15:17 latex Allergy Blisters Verified 03/26/18 15:17 onion Allergy Hives Verified 03/26/18 15:17 Penicillins Allergy Hives Verified 03/26/18 15:18 yvonne cheese Allergy Severe Hives Uncoded 03/26/18 15:17 tomatoes Allergy Severe Hives Uncoded 03/26/18 15:17 Home Medications: Home Medications Naproxen Sodium [Aleve] 220 mg PO 03/26/18 [History] PMH/Surg Hx/FS Hx/Imm Hx - Additional Past Medical History Additional PMH: None Previously Healthy: Yes Other History Of: Negative For: HIV, Hepatitis B, Hepatitis C, Anticoagulant Therapy - Surgical History Surgical History: Yes Surgery Procedure, Year, and Place: FX BACK-NO SURGERY;. RIGHT SHOULDER REPAIR 01/2017;. MIRENA IUD 3T. Rt ankle ligament repair 09/04/2017 w/ Dr. Solomon - Family History Known Family History: Positive: None, Hypertension - Social History Occupation: Employed Full-time Lives: With Family Alcohol Use: None Substance Use Type: None Smoking Status (MU): Never Smoked Tobacco Household Exposure Type: Cigarettes - Immunization History Most Recent Influenza Vaccination: never Most Recent Tetanus Shot: UTD Vaccination Up to Date: Yes Review of Systems Constitutional: Negative Skin: Negative Respiratory: Negative Cardiovascular: Negative Gastrointestinal: Negative Genitourinary: Negative Neurovascular: Negative Musculoskeletal: Other: - LBP Neurological: Negative Psychological: Negative All Other Systems Reviewed And Are Negative: Yes Physical Exam - Summary Physical Exam Summary: GENERAL: NAD. WDWN. No pain distress. SKIN: No rashes, sores, lesions, or open wounds. NECK: Supple. FROM. Nontender. No lymphadenopathy. CHEST: CTAB. No r/r/w. No accessory muscle use. Breathing comfortably and in no distress. CV: RRR. Without m/r/g. Pulses intact. Brisk cap refill. MSK: TTP over lumbar paraspinal muscles. Pain with flexion and extension of spine. Positive SLR b/l. Strength 5/5 B/L LEs including dorsiflexion and plantar flexion. FROM B/L LEs. No edema. NEURO: Alert. Sensations intact B/L LEs L3-S1, but feel "decreased" b/l L3 according pt. PSYCH: Age appropriate behavior. Triage Information Reviewed: Yes Vital Signs: Vital Signs: Temp Pulse Resp BP Pulse Ox 98.6 F 70 18 117/76 100 03/26/18 15:12 03/26/18 15:12 03/26/18 15:12 03/26/18 15:12 03/26/18 15:12 Back Pain Course/Dx - Course Course Of Treatment: Pt was given norco and zofran in the clinical course with mild relief of her pain. She tells me that she has had oxycodone in the past for other injuries with good relief and is requesting that today. I will prescribe her a short course of oxycodone and have her f/u with Dr. Vaughan whom she has seen in the past for back pain. Advised that she will likely need clearance from Dr. Vaughan before she can return to work. XR: IMPRESSION: NEGATIVE EXAMINATION. iSTOP Reference #: [id number] - Differential Dx/Diagnosis Provider Diagnoses: Low back strain Discharge - Sign-Out/Discharge Documenting (check all that apply): Discharge/Admit/Transfer - Discharge Plan Condition: Stable Disposition: HOME Prescriptions: oxyCODONE/Acetamin 5/325 MG* [Percocet 5/325 TAB*] 1 tab PO Q8H PRN #12 tab MDD 3 PRN Reason: Pain Patient Education Materials: Low Back Strain (ED) Forms: *Work Release Referrals: No Primary Care Phys,NOPCP [Primary Care Provider] - Alen Vaughan [Medical Doctor] - As Soon As Possible Additional Instructions: If you develop a fever, shortness of breath, chest pain, new or worsening symptoms - please call your PCP or go to the ED. 1) Please call Dr. Vaughan to schedule a follow up appointment as soon as possible - Billing Disposition and Condition Condition: STABLE Disposition: Home
[2018-03-26 15:16] VITALS: BP 117/76
[2018-03-26] MEDS ORDERED: HYDROcodone/ACETAMIN 5-325 MG* 1 TAB PO ONE (15:25)
--- NOTE | 2018-03-26 15:51 | RAD ---
INDICATION: Back pain COMPARISON: None TECHNIQUE: Routine PA, lateral, and oblique imaging was performed . FINDINGS: Bones: There are no acute bony findings. There are no significant osteoarthritic findings. Alignment: Normal Disc spaces: The disc spaces are well-maintained Soft tissues: There is no IUD. IMPRESSION: NEGATIVE EXAMINATION.
[2018-03-26] MEDS ORDERED: Ondansetron ODT TAB* 4 MG PO ONE (15:54)
== END 2018-03-26 16:45 | disposition home or self-care (01) ==
LOC: UCEAST 15:06
DX: S39.012A Strain of muscle, fascia and tendon of lower back, initial encounter (principal); Z88.0 Allergy status to penicillin; Z91.018 Allergy to other foods; Z91.040 Latex allergy status; W18.30XA Fall on same level, unspecified, initial encounter; Y93.89 Activity, other specified; Y92.69 Other specified industrial and construction area as the place of occurrence of the external cause
CPT/HCPCS: 72110; 99212; A9270-GY; G0463

== ENCOUNTER 2018-04-15 12:01 | Emergency (ER) | payer BC ==
[2018-04-15 12:21] VITALS: BP 111/74
--- NOTE | 2018-04-15 12:25 | UC ---
Throat Pain/Nasal Emerson HPI - HPI Summary HPI Summary: 22 yo female presents with blisters in her mouth that she noticed this morning. Also noticed some spots on her hands and feet. Has also felt "aches" over the last 2-3 days. Has not taken anything OTC. Denies fever, chills, sore throat, sinus symptoms, SOB, or chest pain. - History of Current Complaint Chief Complaint: UCGI Stated Complaint: MOUTH SORE,SOB Time Seen by Provider: 04/15/18 12:25 Hx Obtained From: Patient Hx Last Menstrual Period: iud Onset/Duration: Sudden Onset Severity: Moderate Pain Intensity: 6 Pain Scale Used: 0-10 Numeric - Allergies/Home Medications Allergies/Adverse Reactions: Allergies Allergy/AdvReac Type Severity Reaction Status Date / Time amoxicillin Allergy Blisters Verified 04/15/18 12:20 cucumber Allergy Hives Verified 04/15/18 12:20 Fish Containing Products Allergy Hives Verified 04/15/18 12:20 latex Allergy Blisters Verified 04/15/18 12:20 onion Allergy Hives Verified 04/15/18 12:20 Penicillins Allergy Hives Verified 04/15/18 12:20 yvonne cheese Allergy Severe Hives Uncoded 04/15/18 12:20 tomatoes Allergy Severe Hives Uncoded 04/15/18 12:20 PMH/Surg Hx/FS Hx/Imm Hx - Additional Past Medical History Additional PMH: None Previously Healthy: Yes Other History Of: Negative For: HIV, Hepatitis B, Hepatitis C, Anticoagulant Therapy - Surgical History Surgical History: Yes Surgery Procedure, Year, and Place: FX BACK-NO SURGERY;. RIGHT SHOULDER REPAIR 01/2017;. MIRENA IUD 3T. Rt ankle ligament repair 09/04/2017 w/ Dr. Solomon - Family History Known Family History: Positive: None, Hypertension - Social History Occupation: Employed Full-time Lives: With Family Alcohol Use: Rare Substance Use Type: None Smoking Status (MU): Never Smoked Tobacco Household Exposure Type: Cigarettes - Immunization History Most Recent Influenza Vaccination: never Most Recent Tetanus Shot: UTD Vaccination Up to Date: Yes Review of Systems Constitutional: Negative Skin: Rash Eyes: Negative ENT: Other - Blisters in mouth Respiratory: Negative Cardiovascular: Negative Gastrointestinal: Negative Neurovascular: Negative Neurological: Negative Psychological: Negative All Other Systems Reviewed And Are Negative: Yes Physical Exam - Summary Physical Exam Summary: GENERAL: NAD. WDWN. No pain distress. SKIN: Scant 1mm erythematous blisters on hands and feet. No streaking, bleeding , or drainage. NECK: Supple. Nontender. No lymphadenopathy. Throat: Oropharynx with scant 1mm blisters. Uvula midline. No tonsillar edema or exudates. CHEST: No accessory muscle use. Breathing comfortably and in no distress. CV: Pulses intact NEURO: Alert. CN II-XII grossly intact. PSYCH: Age appropriate behavior. Triage Information Reviewed: Yes Vital Signs: Initial Vital Signs Temp 98.4 F 04/15/18 12:16 Pulse 60 04/15/18 12:16 Resp 18 04/15/18 12:16 BP 111/74 04/15/18 12:16 Pulse Ox 100 04/15/18 12:16 Vital Signs Reviewed: Yes Throat Pain/Nasal Course/Dx - Course Course Of Treatment: Suspect hand, foot, mouth vs other viral illness. Advised to take tylenol/ibuprofen for any discomfort and f/u if her symptoms persist or worsen. - Differential Dx/Diagnosis Provider Diagnoses: Hand, foot, mouth disease Discharge - Sign-Out/Discharge Documenting (check all that apply): Patient Departure - Discharge Plan Condition: Stable Disposition: HOME Patient Education Materials: Hand, Foot, and Mouth Disease (ED) Referrals: No Primary Care Phys,NOPCP [Primary Care Provider] - Additional Instructions: If you develop a fever, shortness of breath, chest pain, new or worsening symptoms - please call your PCP or go to the ED. - Billing Disposition and Condition Condition: STABLE Disposition: Home
== END 2018-04-15 12:36 | disposition home or self-care (01) ==
LOC: UCEAST 12:01
DX: B08.4 Enteroviral vesicular stomatitis with exanthem (principal); Z88.0 Allergy status to penicillin; Z91.040 Latex allergy status; Z91.018 Allergy to other foods
CPT/HCPCS: 99211; G0463

== ENCOUNTER 2018-06-28 13:15 | Emergency (ER) | payer BC ==
[2018-06-28 13:55] VITALS: BP 113/64
--- NOTE | 2018-06-28 22:10 | UC ---
Abdominal Pain Female HPI - HPI Summary HPI Summary: 23 y/o female with PMH + for gallstones, no abdominal surgery presents with pain x several days, fever of 102 last night, nausea with vomiting x 2 today, no relief with tylenols, normal stools. Unable to hold down fluids, increased pain, FMH for gallbladder CA and gallstones - History of Current Complaint Chief Complaint: UCAbdominalPain Stated Complaint: ABD PAIN Time Seen by Provider: 06/28/18 14:03 Hx Obtained From: Patient Hx Last Menstrual Period: Emily ?: No Onset/Duration: Sudden Onset, Lasting Days Timing: Constant Severity Initially: Moderate Severity Currently: Moderate Pain Intensity: 5 Pain Scale Used: 0-10 Numeric Allergies/Adverse Reactions: Allergies Allergy/AdvReac Type Severity Reaction Status Date / Time amoxicillin Allergy Blisters Verified 06/28/18 13:56 cucumber Allergy Hives Verified 06/28/18 13:56 Fish Containing Products Allergy Hives Verified 06/28/18 13:56 latex Allergy Blisters Verified 06/28/18 13:56 onion Allergy Hives Verified 06/28/18 13:56 Penicillins Allergy Hives Verified 06/28/18 13:56 yvonne cheese Allergy Severe Hives Uncoded 06/28/18 13:56 tomatoes Allergy Severe Hives Uncoded 06/28/18 13:56 Home Medications: Home Medications Acetaminophen [Tylenol] 2 tab PO DAILY 06/28/18 [History Confirmed 06/28/18] PMH/Surg Hx/FS Hx/Imm Hx Previously Healthy: Yes - h/o gallstones Other History Of: Negative For: HIV, Hepatitis B, Hepatitis C, Anticoagulant Therapy - Surgical History Surgical History: Yes Surgery Procedure, Year, and Place: FX BACK-NO SURGERY;. RIGHT SHOULDER REPAIR 01/2017;. MIRENA IUD 3T. Rt ankle ligament repair 09/04/2017 w/ Dr. Solomon - Family History Known Family History: Positive: None, Hypertension - Social History Alcohol Use: Rare Substance Use Type: None Smoking Status (MU): Never Smoked Tobacco Household Exposure Type: Cigarettes - Immunization History Most Recent Influenza Vaccination: never Most Recent Tetanus Shot: UTD Vaccination Up to Date: Yes Review of Systems Constitutional: Negative Gastrointestinal: Abdominal Pain, Vomiting, Diarrhea, Nausea Is Patient Immunocompromised?: No All Other Systems Reviewed And Are Negative: Yes Physical Exam Triage Information Reviewed: Yes Appearance: Well-Nourished, Ill-Appearing - mild, Pain Distress Vital Signs: Initial Vital Signs Temp 99 F 06/28/18 13:50 Pulse 70 06/28/18 13:50 Resp 18 06/28/18 13:50 BP 113/64 06/28/18 13:50 Pulse Ox 99 06/28/18 13:50 Vital Signs Reviewed: Yes Eyes: Positive: Conjunctiva Clear Respiratory: Positive: Chest non-tender, Lungs clear, Normal breath sounds, No respiratory distress, No accessory muscle use Cardiovascular: Positive: RRR Abdomen Description: Positive: No Organomegaly, Guarding - RUQ, McBurney's Point Tenderness, Other: - RUQ pain. Negative: CVA Tenderness (R), CVA Tenderness (L) Bowel Sounds: Positive: Present Psychological Exam: Normal Abd Pain Female Course/Dx - Course Course Of Treatment: due to patients symptoms, recommended further care at ER, patient will travel by private car, driven by mother. - Differential Dx/Diagnosis Provider Diagnoses: abdominal pain Discharge - Sign-Out/Discharge Documenting (check all that apply): Patient Departure All imaging exams completed and their final reports reviewed: No Studies - Discharge Plan Condition: Guarded Disposition: HOME Patient Education Materials: Acute Abdominal Pain (ED) Referrals: No Primary Care Phys,NOPCP [Primary Care Provider] - Additional Instructions: - recommended to transport to ER due to fever, unable to perform imaging - - Billing Disposition and Condition Condition: GUARDED Disposition: Home - Attestation Statements Provider Attestation: I was available for consult. This patient was seen by the RAVEN. The patient was not presented to, seen by, or examined by me. -Aki
== END 2018-06-28 14:30 | disposition home or self-care (01) ==
LOC: UCEAST 13:15
DX: R10.11 Right upper quadrant pain (principal); K80.20 Calculus of gallbladder without cholecystitis without obstruction; Z91.040 Latex allergy status; Z88.0 Allergy status to penicillin; Z91.018 Allergy to other foods
CPT/HCPCS: 99212; G0463

== ENCOUNTER 2018-06-28 14:48 | Emergency (ER) | payer BC ==
[2018-06-28 15:49] LABS: ABS Basophils 0 10^3/ul (0-0.2); ABS Eosinophils 0.1 10^3/ul (0-0.6); ABS Lymphocytes 1.3 10^3/ul (1.0-4.8); ABS Monocytes 0.6 10^3/ul (0-0.8); ABS Neutrophils 4.3 10^3/ul (1.5-7.7); ABS Nucleated RBC 0 10^3/ul; Hematocrit 36 % (35-47); Hemoglobin 11.7 g/dl (12.0-16.0); Lymphocyte % 20.1 % (25-47); Mean Corpuscular HGB Conc 33 g/dl (31-36); Mean Corpuscular Hemoglobin 30 pg (27-31); Mean Corpuscular Volume 90 fL (80-97); Mean Platelet Volume 8.7 um3 (7.4-10.4); Nucleated Red Blood Cells % 0; Platelet Count 291 10^3/ul (150-450); Red Blood Count 3.96 10^6/ul (4.00-5.40); Red Cell Distribution Width 14 % (10.5-15); White Blood Count 6.3 10^3/ul (3.5-10.8)
[2018-06-28 16:03] LABS: EGFR Non-African American 75.6 (>60)
--- NOTE | 2018-06-28 18:47 | RAD ---
EXAM: US Abdomen Limited, Right Upper Quadrant EXAM DATE/TIME: 06/28/2018 6:14 PM CLINICAL HISTORY: 23 years old, female; Pain; Abdominal pain; Generalized; Additional info: Ruq pain with past HX of gall stones TECHNIQUE: Real-time ultrasound of the abdomen with image documentation. Examination was focused on the right upper quadrant. COMPARISON: GB US GALL BLADDER 02/19/2016 11:54 AM FINDINGS: Liver: Normal. No masses. Gallbladder: Normal. No gallstones. There is no gallbladder wall thickening. Negative sonographic Betts sign. Common bile duct: Normal. No stones. No dilation. Pancreas: Visualized pancreas is unremarkable. Right kidney: Normal. No mass. No hydronephrosis. IMPRESSION: No acute findings. To contact [facility] with a general question: [facility] - [phone] For direct physician to physician contact: Physician Hotline - [phone] [facility] ([facility] Facility ID #[id number])
[2018-06-28] MEDS ORDERED: traMADol TAB* 50 MG PO ONE (18:49)
[2018-06-28 19:09] LABS: Urine Appearance Cloudy; Urine Blood Negative (Negative); Urine Color Yellow; Urine Ketones Trace (Negative); Urine Protein Negative (Negative); Urine Specific Gravity 1.015 (1.010-1.030); Urine Urobilinogen Negative (Negative)
[2018-06-28 20:12] VITALS: BP 128/76
--- NOTE | 2018-06-28 20:22 | ED ---
Abdominal Pain/Female - HPI Summary HPI Summary: This patient is a 23 year old F presenting to [facility] with a chief complaint of sharp right flank/RUQ pain for a while. PMHx gallstones. She endorses pain radiation to right shoulder and nausea. She notes worsening sx with deep breaths , movement, and eating. PMHx gallstones 1 year ago. She denies urinary sx. Pt notes that Tylenol has not alleviated sx. Rx Darcie (no MPs). She denies FHx DVT , PE. 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 Tylenol has not alleviated sx. - History of Current Complaint Chief Complaint: EDAbdPain Stated Complaint: ABD PAIN/FEVER Time Seen by Provider: 06/28/18 18:39 Hx Obtained From: Patient Hx Last Menstrual Period: Emily Onset/Duration: Lasting Weeks, Still Present Timing: Constant Severity Initially: Moderate Severity Currently: Severe Pain Intensity: 9 Pain Scale Used: 0-10 Numeric Location: Discrete At: RUQ Radiates: Yes Radiates to: Other - R shoulder Character: Sharp Aggravating Factor(s): Food, Movement, Deep Breaths Alleviating Factor(s): Nothing Associated Signs and Symptoms: Positive: Decreased Appetite, Nausea. Negative: Fever, Urinary Symptoms Allergies/Adverse Reactions: Allergies Allergy/AdvReac Type Severity Reaction Status Date / Time amoxicillin Allergy Blisters Verified 06/28/18 13:56 cucumber Allergy Hives Verified 06/28/18 13:56 Fish Containing Products Allergy Hives Verified 06/28/18 13:56 latex Allergy Blisters Verified 06/28/18 13:56 onion Allergy Hives Verified 06/28/18 13:56 Penicillins Allergy Hives Verified 06/28/18 13:56 yvonne cheese Allergy Severe Hives Uncoded 06/28/18 13:56 tomatoes Allergy Severe Hives Uncoded 06/28/18 13:56 PMH/Surg Hx/FS Hx/Imm Hx Endocrine/Hematology History: Denies: Hx Anticoagulant Therapy, Hx Diabetes, Hx Systemic Lupus Erythematosus, Hx Thyroid Disease Cardiovascular History: Denies: Hx Congestive Heart Failure, Hx Deep Vein Thrombosis, Hx Hypertension , Hx Myocardial Infarction, Hx Pacemaker/ICD, Hx Peripheral Vascular Disease Respiratory History: Reports: Hx Asthma - Childhood Denies: Hx Chronic Obstructive Pulmonary Disease (COPD), Hx Lung Cancer GI History: Denies: Hx Gall Bladder Disease, Hx Gastrointestinal Bleed, Hx Ulcer, Hx Urosepsis History: Denies: Hx Dialysis, Hx Kidney Stones, Hx Renal Disease Musculoskeletal History: Reports: Hx Back Problems, Other Musculoskeletal History - RIGHT SHOULDER INJURY; SPINAL FX- resolved Denies: Hx Arthritis, Hx Rheumatoid Arthritis, Hx Osteoporosis, Hx Scoliosis Sensory History: Reports: Hx Contacts or Glasses - reading Denies: Hx Cataracts, Hx Glaucoma, Hx Hearing Aid Opthamlomology History: Reports: Hx Contacts or Glasses - reading Denies: Hx Cataracts, Hx Glaucoma Neurological History: Denies: Hx Dementia, Hx Headaches, Hx Migraine, Hx Seizures, Hx Transient Ischemic Attacks (TIA), Other Neuro Impairments/Disorders Psychiatric History: Denies: Hx Anxiety, Hx Depression, Hx Panic Disorder, Hx Schizophrenia, Hx Bipolar Disorder, Hx Substance Abuse - Cancer History Hx Chemotherapy: No - Surgical History Surgery Procedure, Year, and Place: FX BACK-NO SURGERY;. RIGHT SHOULDER REPAIR 01/2017;. MIRENA IUD 3T. Rt ankle ligament repair 09/04/2017 w/ Dr. Solomon Hx Anesthesia Reactions: No - Immunization History Date of Tetanus Vaccine: Unk Date of Influenza Vaccine: None Infectious Disease History: No Infectious Disease History: Denies: Hx Hepatitis, Traveled Outside the [place] in Last 30 Days - Family History Known Family History: Positive: Hypertension - Social History Occupation: Employed Full-time Alcohol Use: Rare Hx Substance Use: No Substance Use Type: Reports: None Hx Tobacco Use: No Smoking Status (MU): Never Smoked Tobacco Review of Systems Negative: Fever, Chills Negative: Erythema Negative: Sore Throat Negative: Chest Pain Negative: Shortness Of Breath, Cough Positive: Abdominal Pain, Nausea. Negative: Vomiting Negative: dysuria, hematuria Positive: Arthralgia - right shoulder, radiation from abd. Negative: Myalgia, Edema Negative: Rash Neurological: Other - NEGATIVE: Dizziness All Other Systems Reviewed And Are Negative: Yes Physical Exam - Summary Physical Exam Summary: Constitutional: Well-developed, Well-nourished, Alert. (-) Distressed Skin: Warm, Dry HENT: Normocephalic; Atraumatic Eyes: Conjunctiva normal Neck: Musculoskeletal ROM normal neck. (-) JVD, (-) Stridor, (-) Tracheal deviation Cardio: Rhythm regular, rate normal, Heart sounds normal; Intact distal pulses; The pedal pulses are 2+ and symmetric. Radial pulses are 2+ and symmetric. (-) Murmur Pulmonary/Chest wall: Effort normal. (-) Respiratory distress, (-) Wheezes, (-) Rales Abd: Soft, (-) epigastric tenderness, (-) Distension, (-) Guarding, (-) Rebound , (+) RUQ tenderness Musculoskeletal: (-) Edema Lymph: (-) Cervical adenopathy Neuro: Alert, Oriented x3 Psych: Mood and affect Normal Triage Information Reviewed: Yes Vital Signs On Initial Exam: Initial Vitals Temp Pulse Resp BP Pulse Ox 98 F 72 16 125/59 99 06/28/18 15:00 06/28/18 15:00 06/28/18 15:00 06/28/18 15:00 06/28/18 15:00 Vital Signs Reviewed: Yes Diagnostics - Vital Signs Vital Signs Temp Pulse Resp BP Pulse Ox 06/28/18 19:12 68 100 06/28/18 19:11 70 128/76 100 06/28/18 17:13 98 F 59 15 118/66 100 06/28/18 15:00 98 F 72 16 125/59 99 - Laboratory Lab Results: Lab Results 06/28/18 06/28/18 06/28/18 Range/Units 15:20 15:20 15:20 WBC 6.3 (3.5-10.8) 10^3/ul RBC 3.96 L (4.00-5.40) 10^6/ul Hgb 11.7 L (12.0-16.0) g/dl Hct 36 (35-47) % MCV 90 (80-97) fL MCH 30 (27-31) pg MCHC 33 (31-36) g/dl RDW 14 (10.5-15) % Plt Count 291 (150-450) 10^3/ul MPV 8.7 (7.4-10.4) um3 Neut % (Auto) 69.0 (38-83) % Lymph % (Auto) 20.1 L (25-47) % Deuel % (Auto) 9.3 H (0-7) % Eos % (Auto) 1.0 (0-6) % Baso % (Auto) 0.6 (0-2) % Absolute Neuts (auto) 4.3 (1.5-7.7) 10^3/ul Absolute Lymphs (auto) 1.3 (1.0-4.8) 10^3/ul Absolute Monos (auto) 0.6 (0-0.8) 10^3/ul Absolute Eos (auto) 0.1 (0-0.6) 10^3/ul Absolute Basos (auto) 0 (0-0.2) 10^3/ul Absolute Nucleated RBC 0 10^3/ul Nucleated RBC % 0 D-Dimer, Quantitative (Less Than 230) ng/mL Sodium 140 (135-145) mmol/L Potassium 3.8 (3.5-5.0) mmol/L Chloride 109 (101-111) mmol/L Carbon Dioxide 26 (22-32) mmol/L Anion Gap 5 (2-11) mmol/L BUN 9 (6-24) mg/dL Creatinine 0.92 (0.51-0.95) mg/dL Est GFR ( Amer) 91.5 (>60) Est GFR (Non-Af Amer) 75.6 (>60) BUN/Creatinine Ratio 9.8 (8-20) Glucose 107 H (70-100) mg/dL Lactic Acid 0.9 (0.5-2.0) mmol/L Calcium 9.2 (8.6-10.3) mg/dL Total Bilirubin 0.50 (0.2-1.0) mg/dL AST 17 (13-39) U/L ALT 10 (7-52) U/L Alkaline Phosphatase 52 (34-104) U/L C-Reactive Protein < 1.00 (<8.01) mg/L Total Protein 6.7 (6.4-8.9) g/dL Albumin 4.3 (3.2-5.2) g/dL Globulin 2.4 (2-4) g/dL Albumin/Globulin Ratio 1.8 (1-3) Lipase 19 (11.0-82.0) U/L Urine Color Urine Appearance Urine pH (5-9) Ur Specific [place] (1.010-1.030) Urine Protein (Negative) Urine Ketones (Negative) Urine Blood (Negative) Urine Nitrate (Negative) Urine Bilirubin (Negative) Urine Urobilinogen (Negative) Ur Leukocyte Esterase (Negative) Urine Glucose (Negative) 06/28/18 06/28/18 06/28/18 Range/Units 18:53 19:37 19:37 WBC (3.5-10.8) 10^3/ul RBC (4.00-5.40) 10^6/ul Hgb (12.0-16.0) g/dl Hct (35-47) % MCV (80-97) fL MCH (27-31) pg MCHC (31-36) g/dl RDW (10.5-15) % Plt Count (150-450) 10^3/ul MPV (7.4-10.4) um3 Neut % (Auto) (38-83) % Lymph % (Auto) (25-47) % Deuel % (Auto) (0-7) % Eos % (Auto) (0-6) % Baso % (Auto) (0-2) % Absolute Neuts (auto) (1.5-7.7) 10^3/ul Absolute Lymphs (auto) (1.0-4.8) 10^3/ul Absolute Monos (auto) (0-0.8) 10^3/ul Absolute Eos (auto) (0-0.6) 10^3/ul Absolute Basos (auto) (0-0.2) 10^3/ul Absolute Nucleated RBC 10^3/ul Nucleated RBC % D-Dimer, Quantitative < 200 (Less Than 230) ng/mL Sodium (135-145) mmol/L Potassium (3.5-5.0) mmol/L Chloride (101-111) mmol/L Carbon Dioxide (22-32) mmol/L Anion Gap (2-11) mmol/L BUN (6-24) mg/dL Creatinine (0.51-0.95) mg/dL Est GFR ( Amer) (>60) Est GFR (Non-Af Amer) (>60) BUN/Creatinine Ratio (8-20) Glucose (70-100) mg/dL Lactic Acid 0.7 (0.5-2.0) mmol/L Calcium (8.6-10.3) mg/dL Total Bilirubin (0.2-1.0) mg/dL AST (13-39) U/L ALT (7-52) U/L Alkaline Phosphatase (34-104) U/L C-Reactive Protein (<8.01) mg/L Total Protein (6.4-8.9) g/dL Albumin (3.2-5.2) g/dL Globulin (2-4) g/dL Albumin/Globulin Ratio (1-3) Lipase (11.0-82.0) U/L Urine Color Yellow Urine Appearance Cloudy Urine pH 7.0 (5-9) Ur Specific [place] 1.015 (1.010-1.030) Urine Protein Negative (Negative) Urine Ketones Trace A (Negative) Urine Blood Negative (Negative) Urine Nitrate Negative (Negative) Urine Bilirubin Negative (Negative) Urine Urobilinogen Negative (Negative) Ur Leukocyte Esterase Negative (Negative) Urine Glucose Negative (Negative) Result Diagrams: 06/28/18 15:20 06/28/18 15:20 Lab Statement: Any lab studies that have been ordered have been reviewed, and results considered in the medical decision making process. - Ultrasound No standard instances Ultrasound Interpretation: No Acute Changes Ultrasound Interpretation Completed By: Radiologist - US GB: No acute findings. Dr. Soni has reviewed this report. Abdominal Pain Fem Course/Dx - Course Course Of Treatment: A 23-year-old F presents to the ED with a CC of sharp RUQ abd pain for "a while now". (+) radiation to right shoulder, nausea. (-) urinary sx. PMHx gallstones 1 year ago. Sx worsen with movement, eating, and deep breaths. Tylenol does not alleviate sx. A US GB was (-). In the ED course, pt was given tramadol. Pt labs show low H&H, low lymph %, high mono %, and trace urine ketones. - Diagnoses Provider Diagnoses: Right upper quadrant pain Discharge - Sign-Out/Discharge Documenting (check all that apply): Patient Departure - discharge - Discharge Plan Condition: Stable Disposition: HOME Prescriptions: Ondansetron ODT TAB* [Zofran 4 MG Odt TAB*] 4 mg PO Q8H PRN #10 tab.odt PRN Reason: Nausea/Vomiting Pantoprazole Sodium [Protonix] 20 mg PO DAILY #14 tablet. Patient Education Materials: Abdominal Pain (ED) Referrals: Rea Lemus MD [Primary Care Provider] - Additional Instructions: Return to the emergency department for any new or worsening symptoms. Follow up with your primary care physician and the provided doctor (Dr. Tong) in 2-3 days. - Billing Disposition and Condition Condition: STABLE Disposition: Home - Attestation Statements Document Initiated by Lisandraibthuy: Yes Documenting Scribe: Neptali Soliz Provider For Whom Aamdou is Documenting (Include Credential): Dr. Wolfgang Soni MD Scribe Attestation: INeptali, scribed for Dr. Wolfgang Soni MD on 07/05/18 at 0900. Scribe Documentation Reviewed: Yes Provider Attestation: The documentation as recorded by the Neptali swanson accurately reflects the service I personally performed and the decisions made by me, Dr. Wolfgang Soni MD
[2018-06-28] MEDS ORDERED: O ndansetron ODT 4MG 5TAB PRPK 4 MG PAK PO ONE (20:27)
== END 2018-06-28 21:10 | disposition home or self-care (01) ==
LOC: ED 14:48
DX: R10.11 Right upper quadrant pain (principal)
CPT/HCPCS: 36415; 76705; 80053; 81003; 83605; 83690; 85025; 85379; 86140; 99283; A9270-GY

== ENCOUNTER 2018-10-07 14:25 | Emergency (ER) | payer BC ==
[2018-10-07 14:38] VITALS: BP 123/64
--- NOTE | 2018-10-07 14:44 | UC ---
Back Pain HPI - HPI Summary HPI Summary: Patient is 23 year old female, who present today to the urgent care with right low back and hip pain for past 2 days. She reports that 2 days, she fell down 4 stairs onto concrete after she slipped , and landed on back and back of head. She is Denies LOC. She also reports right sided rib pain which gets worse with deep inspiration Back pain is localized in the lumbar area and in the coccyx region . Feels it radiates down to her knee but denies any numbness or tingling. Also reports groin pain . Denies any, incontinence, saddle anesthesia , motor or sensory disturbance. Patient tried ibuprofen with some relief. She denies any shoulder pain She denies any headache,dizziness, visual disturbance, balance problems, phonophobia or photophobia. - History of Current Complaint Chief Complaint: UCBackPain Stated Complaint: BACK/SHOULDER INJURY FELL Time Seen by Provider: 10/07/18 14:36 Hx Obtained From: Patient Hx Last Menstrual Period: unknown IUD ?: No Pain Intensity: 8 - Allergies/Home Medications Allergies/Adverse Reactions: Allergies Allergy/AdvReac Type Severity Reaction Status Date / Time amoxicillin Allergy Blisters Verified 10/07/18 14:39 cucumber Allergy Hives Verified 10/07/18 14:39 Fish Containing Products Allergy Hives Verified 10/07/18 14:39 latex Allergy Blisters Verified 10/07/18 14:39 onion Allergy Hives Verified 10/07/18 14:39 Penicillins Allergy Hives Verified 10/07/18 14:39 yvonne cheese Allergy Severe Hives Uncoded 10/07/18 14:39 tomatoes Allergy Severe Hives Uncoded 10/07/18 14:39 Home Medications: Home Medications Levonorgestrel (Iud) [Mirena IUD] 20 mcg IU MONTHLY 10/07/18 [History Confirmed 10/07/18] PMH/Surg Hx/FS Hx/Imm Hx - Additional Past Medical History Additional PMH: L2-L3 fracture in 2011 treated nonoperatively. No other significant past medical history. Previously Healthy: Yes Other History Of: Negative For: HIV, Hepatitis B, Hepatitis C, Anticoagulant Therapy - Surgical History Surgical History: Yes Surgery Procedure, Year, and Place: FX BACK-NO SURGERY;. RIGHT SHOULDER REPAIR 01/2017;. MIRENA IUD 3T. Rt ankle ligament repair 09/04/2017 w/ Dr. Solomon - Family History Known Family History: Positive: None, Hypertension - Social History Alcohol Use: None Substance Use Type: None Smoking Status (MU): Never Smoked Tobacco Household Exposure Type: Cigarettes - Immunization History Most Recent Influenza Vaccination: never Most Recent Tetanus Shot: UTD Vaccination Up to Date: Yes Review of Systems All Other Systems Reviewed And Are Negative: Yes Constitutional: Positive: Fatigue Skin: Positive: Negative Eyes: Positive: Negative ENT: Positive: Negative Respiratory: Positive: Other - Right-sided Pain upon deep inspiration Cardiovascular: Positive: Negative Gastrointestinal: Positive: Negative Genitourinary: Positive: Negative Motor: Positive: Decreased ROM - Lumbar Neurovascular: Positive: Negative Musculoskeletal: Positive: Arthralgia - Low back pain, right hip pain Neurological: Positive: Negative Psychological: Positive: Negative Is Patient Immunocompromised?: No Physical Exam - Summary Physical Exam Summary: Physical Exam: Const: Appears well. No signs of apparent distress present. Alert and oriented x 3. Musculo: Walks with a normal gait. Head/Face: Atraumatic, normocephalic on inspection. Eyes: EOMI and PERRLA in both eyes. Conjunctivae clear. No discharge noted No nystagmus noted, saccades and smooth pursuits without any discomfort VOR testing is negative Convergence at 4 cm ENT: Hearing normal Respiratory: Respirations are unlabored- unable to take deep inspiration due to pain. Lungs clear to auscultation bilaterally, no wheezing , rhonchi or rales noted . Chest: There is tenderness to palpation on the lateral aspect of the fifth and sixth rib and in the intercostal area. CVS: Regular rate and Rhythm, S1S2 normal , no murmurs identified. Extremities: Peripheral circulation is grossly normal. Pulses 2+ Abdomen : Soft non tender , nondistended , Bowel sounds present . No guarding , rebound tenderness or rigidity noted. Skin: No lesions or rash located on the upper extremities or on the lower extremities. Neuro: Cranial nerves II to XII intact, motor and sensory intact. DTR Intact bilaterally. Mood is normal. Affect is normal. Romberg test negative. C spine: full ROM , slight stiffness on right lateral rotation. Hip/ Spine: Spine: No loss of the normal lumbar lordosis or step-off. There is tenderness to palpation in midline at L4-L5, L5-S1 and at the coccyx . There is mild paraspinal tenderness in the lumbar area bilaterally . There is tenderness to palpation in bilateral SI joint. Stability: No obvious instability. Strength: Flexion, extension, left rotation, left lateral bending, right lateral bending and right rotation strength is intact. ROM: Limited and painful range of motion in all planes Special Tests: Straight leg raise is negative bilaterally. Right Hip: Insp/Palp: Normal to inspection and palpation. Strength: 5/5 bilaterally. Normal muscle tone bilaterally. ROM: Bilateral hips: full ROM - internal and external rotation, pain-free: Neg JESICA test, Neg FADIR test on RIGHT . GCS: 15 Triage Information Reviewed: Yes Vital Signs: Initial Vital Signs Temp 98.5 F 10/07/18 14:31 Pulse 70 10/07/18 14:31 Resp 18 10/07/18 14:31 BP 123/64 10/07/18 14:31 Pulse Ox 100 10/07/18 14:31 Vital Signs Reviewed: Yes Diagnostics - Radiology No standard instances Radiology Interpretation Completed By: Radiologist - Right rib and chest x-ray: NO DISPLACED RIB FRACTURE OR PNEUMOTHORAX. Lumbar spine:UNREMARKABLE RADIOGRAPHS OF THE LUMBAR SPINE Coccyx and sacrum:NO ACUTE OSSEOUS INJURY OF THE SACRUM AND COCCYX. PLAIN FILMS ARE RELATIVELY INSENSITIVE TO NONDISPLACED FRACTURES OF THE SACRUM AND COCCYX. IF THERE IS PERSISTENT CLINICAL CONCERN FOR SACROCOCCYGEAL OSSEOUS PATHOLOGY, BONE SCANNING MAY BE MORE SENSITIVE Right hip and AP pelvis:NO ACUTE OSSEOUS INJURY. IF SYMPTOMS PERSIST, RECOMMEND REPEAT IMAGING. Back Pain Course/Dx - Course Course Of Treatment: During the visit today, we obtained Xrays of L spine, right hip and coccyx along with the right rib. Right rib and chest x-ray:NO DISPLACED RIB FRACTURE OR PNEUMOTHORAX. Lumbar spine:UNREMARKABLE RADIOGRAPHS OF THE LUMBAR SPINE Coccyx and sacrum:NO ACUTE OSSEOUS INJURY OF THE SACRUM AND COCCYX. PLAIN FILMS ARE RELATIVELY INSENSITIVE TO NONDISPLACED FRACTURES OF THE SACRUM AND COCCYX. IF THERE IS PERSISTENT CLINICAL CONCERN FOR SACROCOCCYGEAL OSSEOUS PATHOLOGY, BONE SCANNING MAY BE MORE SENSITIVE. Right hip and AP pelvis :NO ACUTE OSSEOUS INJURY. IF SYMPTOMS PERSIST, RECOMMEND REPEAT IMAGING. She was given 1 dose of ibuprofen 600mg. We discussed the findings and further plan. Her symptoms appear to be secondary to lumbar strain and contusion. Treat with NSAIDs and muscle relaxant. Patient expressed understanding . - Differential Dx/Diagnosis Provider Diagnosis: Lumbar back sprain, Contusion Discharge - Sign-Out/Discharge Documenting (check all that apply): Patient Departure All imaging exams completed and their final reports reviewed: Yes - Discharge Plan Condition: Stable Disposition: HOME Prescriptions: Cyclobenzaprine TAB* [Flexeril 10 MG TAB*] 10 mg PO BID PRN 7 Days #14 tab PRN Reason: Spasms Naproxen [Naprosyn 500 mg tab] 500 mg PO BID PRN 15 Days #30 tablet PRN Reason: Pain Patient Education Materials: Low Back Strain (ED), Contusion in Adults (ED), Lower Back Exercises (ED), Rib Contusion (ED) Referrals: Rea Lemus MD [Primary Care Provider] - 1 Week Roderick Kelly MD [Medical Doctor] - 1 Week Additional Instructions: Please start taking the medication as prescribed to the pharmacy . Follow up with your primary care doctor in 2 days. Return to Urgent care / ER if symptoms get worse. - Billing Disposition and Condition Condition: STABLE Disposition: Home
[2018-10-07] MEDS ORDERED: Ibuprofen TAB* 600 MG PO ONE (14:57)
== END 2018-10-07 16:07 | disposition home or self-care (01) ==
LOC: UCEAST 14:25
DX: S33.5XXA Sprain of ligaments of lumbar spine, initial encounter (principal); S20.221A Contusion of right back wall of thorax, initial encounter; W10.9XXA Fall (on) (from) unspecified stairs and steps, initial encounter; Y92.9 Unspecified place or not applicable; M25.551 Pain in right hip; Z91.040 Latex allergy status; Z88.0 Allergy status to penicillin; Z91.013 Allergy to seafood; Z91.018 Allergy to other foods
CPT/HCPCS: 72110; 72220; 99212; A9270-GY; G0463

== ENCOUNTER 2018-11-13 07:44 | Emergency (ER) | payer BC ==
--- OUTSIDE RECORDS SUMMARY | 2018-11-13 07:56 | XMS REPORT | Continuity of Care Document ---
:1995 External Reference #:[id number] Author Name Jannet Giraldo O.D. Address [address] [facility] [address] Care Team Providers Name Role Phone Rea Lemus M.D. Primary Care Physician Unavailable Payers Date Identification Numbers Payment Provider Subscriber Policy Number: [id number] [employer] Pena PayID: [id number] [address] [place] [address] Advance Directives Description No Information Available Problems Date Description Provider Status Onset: 10/31/2018 Myopia Jannet Giraldo O.D. Active Onset: 10/31/2018 Regular astigmatism Jnanet Giraldo O.D. 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 ETOH Use Denies alcohol use Tobacco Use Start: Unknown Patient has never smoked Smoking Status Reviewed: 10/31/18 Patient has never smoked Allergies, Adverse Reactions, Alerts Date Description Reaction Status Severity Comments 10/31/2018 Amoxicillin Active Medications Medication Date Status Form Strength Qnty SIG Indications Ordering Provider Artificial 10/30/19 Active Solution 1.4% as needed Jannet Lagos Tears 19 Melany Giraldo Immunizations Description No Information Available Vital Signs Description No Information Available Results Description No Information Available Procedures Description No Information Available Encounters Description No Information Available Plan of Treatment 10/31/2018 - Jannet Giraldo O.D.H52.13 Myopia, bilateralComments:You have Myopia, or near sightedness. I have given you a prescription for glasses. start using artificial tears 4-5 times a day both eyesFollow up:next available MR only(no drops)H52.223 Regular astigmatism, bilateralComments:Smoking can increase the risk of developing or worsening any eye related disease, as well as affect your overall health. If you are a smoker, we strongly recommend that you quit.If you are not a smoker, we strongly recommend that you do not start. Astigmatism is a common vision condition that happens when a person's cornea is not symmetrical. Dr. Giraldo has given you a prescription to correct for this.
--- OUTSIDE RECORDS SUMMARY | 2018-11-13 07:56 | XMS REPORT | Continuity of Care Document ---
:1995 External Reference #:[id number] Author Name Jannet Giraldo O.D. Address [address] [facility] [place] [address] Care Team Providers Name Role Phone Rea Lemus M.D. Primary Care Physician Unavailable Payers Date Identification Numbers Payment Provider Subscriber Policy Number: [id number] [employer] Pena PayID: [id number] [address] [place] [address] Advance Directives Description No Information Available Problems Date Description Provider Status Onset: 10/31/2018 Myopia Jannet Giraldo O.D. Active Onset: 10/31/2018 Regular astigmatism Jannet Giraldo O.D. 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 ETOH Use Denies alcohol use Tobacco Use Start: Unknown Patient has never smoked Smoking Status Reviewed: 11/02/18 Patient has never smoked Allergies, Adverse Reactions, Alerts Date Description Reaction Status Severity Comments 10/31/2018 Amoxicillin Active Medications Medication Date Status Form Strength Qnty SIG Indications Ordering Provider Artificial 10/30/19 Active Solution 1.4% as needed Jannet Lagos Tears 19 Melany Giraldo Immunizations Description No Information Available Vital Signs Description No Information Available Results Description No Information Available Procedures Date Code Description Status 10/31/2018 78438 New Patient Comprehensive Exam Completed Encounters Description No Information Available Plan of Treatment 11/02/2018 - Jannet Giraldo O.D.H52.13 Myopia, bilateralComments:You have Myopia, or near sightedness. I have given you a prescription for glasses.Follow up:2 YEARS You can expect to have your eyes dilated at your next visit. If Dr. Giraldo orders any additional testing, it may require extra time. We recommend that you bring sunglasses, as dilation drops often make you light sensitive until they wear off. We always recommend you bring someone to drive youhome if you are uncomfortable driving with your eyes dilated. If you have any questions before your next visit, feel free to call our office at .U44.280 Regular astigmatism, bilateralComments:Smoking can increase the risk [...]
[2018-11-13 07:58] VITALS: BP 115/64
--- NOTE | 2018-11-13 08:06 | UC ---
Respiratory Complaint HPI - HPI Summary HPI Summary: cough x 2 days cough is dry , chest congestion , pnd body aches, sore throat, no fever, + chills, bad headache - History of Current Complaint Chief Complaint: UCGeneralIllness Stated Complaint: COUGH,CONGESTION,LIGHT HEADED Time Seen by Provider: 11/13/18 07:58 Hx Obtained From: Patient Hx Last Menstrual Period: IUD ?: No Onset/Duration: Gradual Onset, Lasting Days - 2, Still Present Timing: Constant Severity Initially: Moderate Severity Currently: Moderate Pain Intensity: 8 Character: Cough: Nonproductive Aggravating Factors: Exertion, Deep Breaths Alleviating Factors: Nothing Associated Signs And Symptoms: Positive: Chills, URI, Nasal Congestion. Negative: Dyspnea, Fever, Wheezing, Hemoptysis, Dizziness, Calf Pain, Calf Swelling, Hoarseness, Sinus Discomfort - Allergies/Home Medications Allergies/Adverse Reactions: Allergies Allergy/AdvReac Type Severity Reaction Status Date / Time amoxicillin Allergy Blisters Verified 10/07/18 14:39 cucumber Allergy Hives Verified 10/07/18 14:39 Fish Containing Products Allergy Hives Verified 10/07/18 14:39 latex Allergy Blisters Verified 10/07/18 14:39 onion Allergy Hives Verified 10/07/18 14:39 Penicillins Allergy Hives Verified 10/07/18 14:39 yvonne cheese Allergy Severe Hives Uncoded 10/07/18 14:39 tomatoes Allergy Severe Hives Uncoded 10/07/18 14:39 Home Medications: Home Medications Ibuprofen TAB* [Motrin TAB* 600 MG] 600 mg PO Q6H PRN 11/13/18 [History Confirmed 11/13/18] PMH/Surg Hx/FS Hx/Imm Hx Respiratory History: Asthma Other History Of: Negative For: HIV, Hepatitis B, Hepatitis C, Anticoagulant Therapy - Surgical History Surgical History: Yes Surgery Procedure, Year, and Place: FX BACK-NO SURGERY;. RIGHT SHOULDER REPAIR 01/2017;. MIRENA IUD 3T. Rt ankle ligament repair 09/04/2017 w/ Dr. Solomon - Family History Known Family History: Positive: None, Hypertension - Social History Alcohol Use: None Substance Use Type: None Smoking Status (MU): Never Smoked Tobacco Household Exposure Type: Cigarettes - Immunization History Most Recent Influenza Vaccination: never Most Recent Tetanus Shot: UTD Vaccination Up to Date: Yes Review of Systems All Other Systems Reviewed And Are Negative: Yes Constitutional: Positive: Chills, Fatigue Skin: Positive: Negative Eyes: Positive: Negative ENT: Positive: Sore Throat, Nasal Discharge Respiratory: Positive: Cough Cardiovascular: Positive: Negative Is Patient Immunocompromised?: No Physical Exam Triage Information Reviewed: Yes Appearance: Well-Appearing, No Pain Distress, Well-Nourished Vital Signs: Initial Vital Signs Temp 98 F 11/13/18 07:54 Pulse 81 11/13/18 07:54 Resp 16 11/13/18 07:54 BP 115/64 11/13/18 07:54 Pulse Ox 100 11/13/18 07:54 Vital Signs Reviewed: Yes Eye Exam: Normal Eyes: Positive: Conjunctiva Clear ENT: Positive: Normal ENT inspection, Hearing grossly normal, Pharynx normal, Nasal congestion. Negative: Tonsillar swelling, Tonsillar exudate Neck: Positive: Supple, Nontender, No Lymphadenopathy Respiratory: Positive: Chest non-tender, Lungs clear, Normal breath sounds Cardiovascular: Positive: RRR, No Murmur, Pulses Normal Skin Exam: Normal UC Diagnostic Evaluation - Laboratory O2 Sat by Pulse Oximetry: 100 Respiratory Course/Dx - Differential Dx/Diagnosis Provider Diagnosis: URI (upper respiratory infection) Discharge - Sign-Out/Discharge Documenting (check all that apply): Patient Departure All imaging exams completed and their final reports reviewed: No Studies - Discharge Plan Condition: Stable Disposition: HOME Patient Education Materials: Upper Respiratory Infection (DC) Forms: *Work Release Referrals: Rea Lemus MD [Primary Care Provider] - If Needed Additional Instructions: viral illness, no need for antibiotic cont. with rest, increase fluid , take Tylenol as needed for pain / fever, headaches follow up as needed - Billing Disposition and Condition Condition: STABLE Disposition: Home
== END 2018-11-13 08:10 | disposition home or self-care (01) ==
LOC: UCCORT 07:44
DX: J06.9 Acute upper respiratory infection, unspecified (principal); J45.909 Unspecified asthma, uncomplicated; Z88.0 Allergy status to penicillin; Z91.018 Allergy to other foods; Z91.040 Latex allergy status; Z91.013 Allergy to seafood
CPT/HCPCS: 99211; G0463

== ENCOUNTER 2018-11-13 15:56 | Emergency (ER) | payer BC ==
[2018-11-13 16:43] LABS: Influenza A Molecular POSITIVE (Negative)
[2018-11-13] MEDS ORDERED: Benzonatate CAP* 100 MG PO ONE (17:35)
[2018-11-13] MEDS ORDERED: Ondansetron ODT TAB* 4 MG PO ONE (17:35)
[2018-11-13] MEDS ORDERED: Ibuprofen TAB* 600 MG PO ONE (17:36)
[2018-11-13] MEDS ORDERED: Oseltamivir CAP* 75 MG CAP PO ONE (17:36)
--- NOTE | 2018-11-13 17:44 | ED ---
Influenza-Like Illness - HPI Summary HPI Summary: Patient complains of flulike symptoms starting yesterday. States history of cough 1 week with sudden onset N/V, sore throat, body aches starting yesterday. Denies known fever, SULLIVAN, neck stiffness, CP, SOB, abdominal pain, change in urine, change in BM. Medical history is none. - History of Current Complaint Chief Complaint: EDFluSymptoms Time Seen by Provider: 11/13/18 17:25 Hx Obtained From: Patient Onset/Duration: Gradual Onset Severity: Moderate Associated Signs & Symptoms: Myalgia, Cough, Sore Throat, Vomiting - Allergy/Home Medications Allergies/Adverse Reactions: Allergies Allergy/AdvReac Type Severity Reaction Status Date / Time amoxicillin Allergy Blisters Verified 11/13/18 16:26 cucumber Allergy Hives Verified 11/13/18 16:26 Fish Containing Products Allergy Hives Verified 11/13/18 16:26 latex Allergy Blisters Verified 11/13/18 16:26 onion Allergy Hives Verified 11/13/18 16:26 Penicillins Allergy Hives Verified 11/13/18 16:26 yvonne cheese Allergy Severe Hives Uncoded 11/13/18 16:26 tomatoes Allergy Severe Hives Uncoded 11/13/18 16:26 PMH/Surg Hx/FS Hx/Imm Hx Endocrine/Hematology History: Denies: Hx Anticoagulant Therapy, Hx Diabetes, Hx Systemic Lupus Erythematosus, Hx Thyroid Disease Cardiovascular History: Denies: Hx Congestive Heart Failure, Hx Deep Vein Thrombosis, Hx Hypertension , Hx Myocardial Infarction, Hx Pacemaker/ICD, Hx Peripheral Vascular Disease Respiratory History: Denies: Hx Asthma - Childhood, Hx Chronic Obstructive Pulmonary Disease (COPD ), Hx Lung Cancer GI History: Denies: Hx Gall Bladder Disease, Hx Gastrointestinal Bleed, Hx Ulcer, Hx Urosepsis History: Denies: Hx Dialysis, Hx Kidney Stones, Hx Renal Disease Musculoskeletal History: Reports: Hx Back Problems, Other Musculoskeletal History - RIGHT SHOULDER INJURY; SPINAL FX- resolved Denies: Hx Arthritis, Hx Rheumatoid Arthritis, Hx Osteoporosis, Hx Scoliosis Sensory History: Reports: Hx Contacts or Glasses - reading Denies: Hx Cataracts, Hx Glaucoma, Hx Hearing Aid Opthamlomology History: Reports: Hx Contacts or Glasses - reading Denies: Hx Cataracts, Hx Glaucoma Neurological History: Denies: Hx Dementia, Hx Headaches, Hx Migraine, Hx Seizures, Hx Transient Ischemic Attacks (TIA), Other Neuro Impairments/Disorders Psychiatric History: Denies: Hx Anxiety, Hx Depression, Hx Panic Disorder, Hx Schizophrenia, Hx Bipolar Disorder, Hx Substance Abuse - Cancer History Cancer Type, Location and Year: fractured back; "my stomach doesn't digest correctly" Hx Chemotherapy: No - Surgical History Surgery Procedure, Year, and Place: FX BACK-NO SURGERY;. RIGHT SHOULDER REPAIR 01/2017;. MIRENA IUD 3T. Rt ankle ligament repair 09/04/2017 w/ Dr. Juanito Evans Anesthesia Reactions: No - Immunization History Date of Tetanus Vaccine: Unk Date of Influenza Vaccine: None Infectious Disease History: No Infectious Disease History: Denies: Hx Hepatitis, Hx Human Immunodeficiency Virus (HIV), Traveled Outside the [place] in Last 30 Days - Family History Known Family History: Positive: None, Hypertension - Social History Alcohol Use: None Hx Substance Use: No Substance Use Type: Reports: None Hx Tobacco Use: No Smoking Status (MU): Never Smoked Tobacco Review of Systems Constitutional: Negative Eyes: Negative Positive: Sore Throat Cardiovascular: Negative Positive: Cough Positive: Vomiting, Nausea Genitourinary: Negative Positive: Myalgia Skin: Negative Neurological: Negative Psychological: Normal All Other Systems Reviewed And Are Negative: Yes Physical Exam - Summary Physical Exam Summary: Neck supple. Physical exam unremarkable. Triage Information Reviewed: Yes Vital Signs On Initial Exam: Initial Vitals Temp Pulse Resp BP Pulse Ox 99.7 F 116 16 114/68 98 11/13/18 16:22 11/13/18 16:22 11/13/18 16:22 11/13/18 16:22 11/13/18 16:22 Vital Signs Reviewed: Yes Appearance: Positive: Well-Appearing Skin: Positive: Warm Head/Face: Positive: Normal Head/Face Inspection Eyes: Positive: Normal ENT: Positive: Normal ENT inspection Neck: Positive: Supple Respiratory/Lung Sounds: Positive: Clear to Auscultation Cardiovascular: Positive: Normal Abdomen Description: Positive: Nontender Musculoskeletal: Positive: Normal Neurological: Positive: Normal Psychiatric: Positive: Normal AVPU Assessment: Alert - Melyssa Coma Scale Best Eye Response: 4 - Spontaneous Best Motor Response: 6 - Obeys Commands Best Verbal Response: 5 - Oriented Coma Scale Total: 15 Diagnostics - Vital Signs Vital Signs Temp Pulse Resp BP Pulse Ox 11/13/18 16:22 99.7 F 116 16 114/68 98 - Laboratory Lab Results: Lab Results 11/13/18 Range/Units 16:38 Influenza A (Rapid) Positive A (Negative) Lab Statement: Any lab studies that have been ordered have been reviewed, and results considered in the medical decision making process. Flu Symptom Course/Dx - Course Course Of Treatment: Patient complains of flulike symptoms starting yesterday. States history of cough 1 week with sudden onset N/V, sore throat, body aches starting yesterday. Denies known fever, SULLIVAN, neck stiffness, CP, SOB, abdominal pain, change in urine, change in BM. Medical history is none. Physical exam: Neck supple. Physical exam unremarkable. Positive for fluid. Rx for Tamiflu, Zofran, Tessalon. Advised patient alternate ibuprofen and Tylenol for control of fever and body aches. - Diagnoses Provider Diagnoses: Flu Discharge - Sign-Out/Discharge Documenting (check all that apply): Patient Departure Patient Received Moderate/Deep Sedation with Procedure: No - Discharge Plan Condition: Stable Disposition: HOME Prescriptions: Benzonatate CAP* [Tessalon 100 MG CAP*] 200 mg PO TID 6 Days #40 cap Ondansetron ODT TAB* [Zofran 4 MG Odt TAB*] 4 mg PO Q8H PRN 4 Days #14 tab.odt PRN Reason: Nausea Oseltamivir CAP* [Tamiflu CAP*] 75 mg PO BID 5 Days #10 cap Patient Education Materials: Influenza (ED) Forms: *Work Release Referrals: Rea Lemus MD [Primary Care Provider] - Additional Instructions: Take Tamiflu as directed. Take Zofran for nausea as directed. Drink plenty of fluids to maintain hydration. Rest. Alternate ibuprofen 600 mg with Tylenol 650 mg every 3 hours for control of fever and body aches. Follow-up with primary care. Return to the ED for any new or worsening symptoms. - Billing Disposition and Condition Condition: STABLE Disposition: Home
[2018-11-13 18:19] VITALS: BP 110/68
== END 2018-11-13 18:17 | disposition home or self-care (01) ==
LOC: ED 15:56
DX: J10.1 Influenza due to other identified influenza virus with other respiratory manifestations (principal); Z91.040 Latex allergy status; Z88.0 Allergy status to penicillin; Z91.013 Allergy to seafood; Z91.018 Allergy to other foods
CPT/HCPCS: 99282; A9270-GY

== ENCOUNTER → 2019-09-04 12:52 | Day surgery (SDC) | payer BC ==
[~2019-09-04 12:52] MED LIST changes: +Buffered Lidocaine 1% SYRIN* 1 ML/SYRINGE INTRADERM ONE; +Dexamethasone IV* 4 MG/ML 1 ML (4 MG) ONE; +DiMENhydriNATE IV* 50 MG/ML VIAL IV PUSH PRN; +DiMENhydriNATE IV* 50 MG/ML VIAL ONE; +Famotidine IV* 10 MG/ML 2 ML (20 mg) ONE; +HYDROmorphone INJ1* 1 MG/ML SYRINGE ONE; +Ketorolac INJ* 30 MG/ML 1 ML VIAL ONE; +Lactated Ringers 1000 ML Bag* 1,000 ML IV SCH; +Lidocaine 1% MPF ** 5 ML VIAL ONE; +Lidocaine 2% PF * 5 ML VIAL ONE; +Midazolam* 1 MG/ML 5 ML VIAL (5 MG) ONE; +Naloxone* 0.4 MG/ML 1 ML VIAL IV PRN; +Ondansetron INJ* 2 MG/ML VIAL ONE; +Propofol* 10 MG/ML 20 ML BTL ONE; +ROPIVACAINE 5 MG/ML 30 ML BTL (0.5%) ONE; +Succinylcholine* 20 MG/ML 10 ML VIAL ONE; +ceFAZolin 2 GM in NS PREMIX(*) 2 GM/100 ML BAG IVPB ONE; +fentaNYL* 50 MCG/ML 2 ML VIAL (100 MCG VIAL) ONE; +methylPREDNISolone ACETATE 80* 80 MG/ML 1 ML VIAL ONE; +oxyCODONE/Acetamin 5/325 MG* TAB ONE; +oxyCODONE/Acetamin 5/325 MG* TAB PO PRN
[2019-09-04] MEDS: HYDROmorphone INJ1* 1 MG/ML SYRINGE IV PRN ×2 (17:40→18:00)
[2019-09-04 18:34] VITALS: BP 118/77
--- NOTE | 2019-09-06 10:33 | OP ---
OPERATIVE REPORT: DATE OF OPERATION: 09/04/19 DATE OF : 89 SURGEON: Steve Caldwell MD ANIMAL SERVICES OFFICER: JUNE Dumont An assistant laboratory director was needed for the entirety of the case to help with positioning, retraction, and was ut ilized throughout all portions of the case. ANESTHESIOLOGIST: Dr. Johnson. ANESTHESIA: General, interscalene block. PRE-OP DIAGNOSIS: Right shoulder previous anterior labral repair with biceps tenodesis with impingem ent and acromioclavicular joint arthritis, possible labral retear. POST-OP DIAGNOSIS: Intact labral repair, significant scar tissue anteriorly, impingement with acromi oclavicular joint arthritis. OPERATIVE PROCEDURE: Right shoulder revision arthroscopy with: 1. Extensive glenohumeral debridement with lysis of adhesions. 2. Arthroscopic lysis of adhesions. 3. Revision decompression. 4. Arthroscopic distal clavicle excision. COMPLICATIONS: None. ESTIMATED BLOOD LOSS: Minimal. IMPLANTS: None. INDICATIONS: Patty Marie is a 24-year-old female who had a previous labral repair in 2017. She had initially done well. She then presented earlier this year with increasing pain what she thought was instability. She reinjured it. She failed physical therapy, antiinflammatories, ice, heat, and inj ection. She is elected to proceed with surgical treatment. Risks and benefits were discussed at [facility], including but not limited to bleeding; infection; damage to nerves, vessels, surrounding structu res; wound nonhealing; persistent pain; need for surgery; scaring; stiffness; incomplete relief of sy mptoms; risks of anesthesia; failure of the repair; need for further surgeries; stiffness; risk of DV T; persistent pain. We did discuss that I was not convinced her labrum was torn but I was unsure, we were going to revise it if it needed to be revised but we were going to evaluate. DESCRIPTION OF PROCEDURE: The patient was greeted in the preoperative area by the attending surgeon. Correct extremity was marked. Consent was confirmed. The patient underwent interscalene nerve blo ck by anesthesiologist after which she was brought back to the operating suite, placed in a supine po sition on the operating room table and then underwent general anesthesia with endotracheal intubation . After which, she was placed in the left lateral decubitus position with all bony prominences padded and secured with a peg board. The right arm was draped unsterile with 10 pounds of traction. Right shoulder was then prepped and draped in the usual sterile fashion beginning with chlorhexidine soap, scrub, and alcohol wipe and a final prep with ChloraPrep. After appropriate surgical pause indicating site, side, procedure, administration of antibiotics, the standard posterolateral portal was made sharply with an 11 blade. Scope was introduced into the tee nt. The joint was examined. There was abundant synovitis that was present as well as evidence of SL AP type 2 tear. The anterior portal was made in an outside-in fashion. Shaver was used to debride b ack the anterior, posterior, and superior labrum. Biceps was then tenotomized. The undersurface of the subscap was intact. The undersurface of the supraspinatus had minimal changes, had some very mil d partial tearing. Inferior recess was intact. The anterior, posterior, and superior labrum were the n debrided back. Attention was then directed to the subacromial space. With the scope positioned in the subacromial space, lateral portal was made in an outside-in fashion. Shaver was used to debride back the abundant bursa that was present. The undersurface of the acrom ion was skeletonized using electrocautery device. CA ligament was released. The 4-0 oval marilynn was t hen used to do an acromioplasty. Once that was complete, all excess debris was removed. Attention w as directed to the rotator cuff. There was some mild changes to rotator cuff, some mild fraying, and decision was made to proceed with Regeneten patch. The size medium Regeneten patch was brought to the field, then visualized and plac ed arthroscopically and then using separate stab incision. The tendon nikki were used to secure th e tendon medially. Laterally, the PEEK nikki were then used to secure it to the bone. The graft wa s found to be well seated. The final images were obtained. The wounds were then copiously irrigated with sterile saline. The portals were closed with 3-0 nylon. Sterile dressings were applied. A Cry o/Cuff and a regular sling was applied. She was awoken from anesthesia and transferred to PACU in st able condition. POSTOPERATIVE PLAN: She will be nonweightbearing. She will be in the sling for 2 to 3 days. Discha rged on pain medication. DVT prophylaxis was considered but deferred due to no pervious personal or family history. I will see the patient back in 10 to 14 days. [id number]/[facility] #: [id number]
== END | disposition home or self-care (01) ==
LOC: OR 12:52
PROVIDERS: ATTEND Orthopaedic Surgery
DX: M75.41 Impingement syndrome of right shoulder (principal); M06.4 Inflammatory polyarthropathy; M65.811 Other synovitis and tenosynovitis, right shoulder; G89.18 Other acute postprocedural pain
CPT/HCPCS: 81025; A9270-GY; J0330; J0690; J1040; J1100; J1170; J1240; J1885; J2250; J2405; J2704; J2795; J3010